=== PATIENT | male | born 1955 | race Caucasian/White ===

== ENCOUNTER 2017-06-10 16:41 | Observation (INO) ==
--- NOTE | 2017-06-10 16:57 | Emergency Department Note ---
Disposition Clinical Impression: Atrial fibrillation Abdominal pain Qualifiers: Abdominal location: generalized Qualified Code(s): R10.84 - Generalized abdominal pain Hematuria Qualifiers: Hematuria type: unspecified type Qualified Code(s): R31.9 - Hematuria, unspecified Disposition: Admitted As Inpatient Condition: Good Referrals: Jiemnez Ramirez MD [Primary Care Provider] - Forms: ED Satisfaction Letter, Work/School Release Time of Disposition: 19:28 Abdominal Pain HPI - General Chief Complaint: ED Abdominal Pain Stated Complaint: constipation Time Seen by Provider: 06/10/17 16:46 Source: patient Mode of arrival: ambulatory Limitations: no limitations Nursing Notes Reviewed: Yes Vital Signs Reviewed: Yes - History of Present Illness HPI Narrative: 62-year-old who states he's not had a bowel movement for 5 days. He states he was started on Xarelto for A. fib did note that was a side effect related. He's got dark urine did note there was blood in it. He's not had a bowel movement so he cannot tell me if he's had blood in his stool. Pt Subjective Complaint: abdominal pain Onset (ago): day(s) Consistency: constant Location: diffuse Pain Scale: 5 Quality: cramping, aching Radiation: none Migration to: no migration Improves with: nothing Worsens with: nothing Associated symptoms: Reports: constipation - Related Data Allergies Allergy/AdvReac Type Severity Reaction Status Date / Time cephalexin Allergy Hives Verified 06/10/17 19:00 Constitutional: Denies: fever, chills, weakness, weight change Eyes: Denies: eye pain, eye discharge, vision change ENT ED: Denies: ear pain, throat pain, dental pain, hearing loss, epistaxis, congestion, dysphagia Cardiovascular: Denies: chest pain, palpitations, dyspnea on exertion, edema, syncope Respiratory: Denies: cough, dyspnea, wheezes, hemoptysis, stridor Gastrointestinal: Reports: abdominal pain, constipation. Denies: nausea, vomiting, diarrhea, hematemesis, melena, hematochezia Genitourinary: Denies: urgency, dysuria, frequency, hematuria Musculoskeletal: Denies: back pain, neck pain, arthralgia, myalgia Integumentary: Denies: rash, abrasion, lesions Neurological: Denies: headache, weakness, numbness, paresthesias, confusion, abnormal gait, vertigo Psychiatric: Denies: anxiety, depression, suicidal thoughts, homicidal thoughts , auditory hallucinations, visual hallucinations Endocrine: Denies: fatigue Hematological/Lymphatic: Denies: easy bleeding, easy bruising Allergic/Immunologic: Denies: facial swelling, urticaria Abdominal Pain PMH - Past Medical History Medical history: Reports: atrial fibrillation, COPD, other Male Surgical History: Reports: other - Social History Smoking status: Current every day smoker Alcohol use: Reports: none Drug use: Reports: none Physical Exam - General Limitations: no limitations General appearance: in no apparent distress - Head Head exam: atraumatic, normocephalic, normal inspection - Eye Eye exam: Present: normal appearance, PERRL, EOMI - ENT ENT exam: normal exam, normal oropharynx, mucous membranes moist - Neck Neck exam: Present: normal inspection, full ROM, trachea midline - Chest Chest inspection: Present: normal inspection, symmetric chest wall rise - Respiratory Respiratory exam: Present: normal lung sounds bilaterally - Cardiovascular Cardiovascular exam: Present: regular rate, normal rhythm, normal heart sounds - Abdominal Exam Abdominal exam: Present: soft, tenderness. Absent: guarding, rebound Abdominal tenderness: Present: diffuse - Rectal Exam Farmer And Grazier present during exam: Yes Rectal exam: Present: other (Brown stool) - Extremities Exam Extremities exam: Present: normal inspection, full ROM. Absent: tenderness, pedal edema - Expanded Lower Extremity Exam Neurovascular/Tendon exam: Absent: motor deficit, sensory deficit, tendon deficit Gait: observed and normal - Back Exam Back exam: Present: normal inspection, full ROM. Absent: tenderness - Neurological Exam Neurological exam: Present: alert, oriented X3 - Psychiatric Psychiatric exam: Present: normal affect, normal mood - Skin Skin exam: Present: warm, dry, intact, normal color Course - Reevaluation(s) Reevaluation #1: 62-year-old who comes in with increasing abdominal pain. Patient has a history of A. fib related to Graves' disease and was placed on Xarelto by cardiology in anticipation of elective cardioversion. At increasing abdominal pain and hematuria. Workup included a CT scan which was negative. He did show evidence of hematuria there were some white cells and some leukocyte esterase. We'll place him on antibiotics and admit him and cardiology will see him in consult. Time: 19:27 - Consultations Consultation #1: Discussed with , we will admit to the hospital stay will see in consult. Time: 19:26 Consultation #2: Discussed with Bell Flores, admit Time: 19:26 Vital Signs Temperature 97.5 F L 06/10/17 16:42 Pulse Rate 84 06/10/17 16:42 Respiratory Rate 18 06/10/17 16:42 Blood Pressure 185/109 06/10/17 16:42 O2 Sat by Pulse Oximetry 99 06/10/17 16:42 Temperature 97.5 F L 06/10/17 16:42 Pulse Rate 80 06/10/17 19:01 Respiratory Rate 17 06/10/17 19:01 Blood Pressure 144/103 06/10/17 19:01 O2 Sat by Pulse Oximetry 95 06/10/17 19:01 Oxygen Delivery Oxygen Delivery Room Air Abdominal Pain - Lab Data Result diagrams: 06/10/17 17:54 06/10/17 17:54 Lab Results 06/10/17 06/10/17 06/10/17 Range/Units 17:54 17:54 17:54 WBC 9.5 (4.3-11.1) K/mcL RBC 4.92 (4.19-5.50) M/mcL Hgb 14.9 (12.9-16.9) g/dL Hct 46.5 (37.5-50.1) % MCV 94.5 (83.0-100.0) fL MCH 30.3 (28.0-33.3) pg MCHC 32.0 (31.6-35.5) g/dL RDW 13.6 (11.5-14.5) % Plt Count 237 (140-400) K/mcL MPV 9.8 (9.4-12.4) fL Immature Gran % 0.3 (0-4) % Seg Neutrophils % 72.5 % Lymphocytes % 17.3 % Monocytes % 5.6 % Eosinophils % 3.9 % Basophils % 0.4 % Neutrophils # 6.9 (1.6-8.9) K/mcL Lymphocytes # 1.6 (0.6-4.6) K/mcL Monocytes # 0.5 (0.0-1.3) K/mcL Eosinophils # 0.4 (0.0-0.6) K/mcL Basophils # 0.0 (0.0-0.2) K/mcL Sodium 143 (136-145) mEq/L Potassium 4.1 (3.5-4.5) mEq/L Chloride 109 (98-109) mEq/L Carbon Dioxide 26 (19-29) mEq/L BUN 13 (8-26) mg/dL Creatinine 1.18 (0.72-1.25) mg/dL Est GFR ( Amer) > 60 (> 60) Est GFR (Non-Af Amer) > 60 (> 60) BUN/Creatinine Ratio 11 (6-26) Glucose 80 (70-99) mg/dL Calculated Osmolality 295 (280-300) Calcium 9.2 (8.6-10.8) mg/dL Total Bilirubin 0.7 (0.2-1.2) mg/dL Direct Bilirubin 0.3 (0.0-0.5) mg/dL Indirect Bilirubin 0.4 (0.0-1.2) mg/dL AST 15 (5-34) Units/L ALT 10 (0-55) Units/L Alkaline Phosphatase 96 (38-126) Units/L Serum Total Protein 7.3 (6.0-8.3) g/dL Albumin 4.0 (3.5-5.0) g/dL Globulin 3.3 (2.4-3.5) g/dL Albumin/Globulin Ratio 1.2 (1.1-2.2) Amylase 34 (25-125) Units/L Lipase 21 (8-78) Units/L TSH 0.733 (0.350-4.840) mcIU/mL Free T4 1.26 (0.70-1.48) ng/dl Thyroxine (T4) 8.58 (4.87-11.72) mcg/dL Urine Color (Yellow) Urine Clarity (Clear) Urine pH (5.0-8.0) pH Units Ur Specific [place] (1.010-1.025) Urine Protein (Neg-Trace) mg/dL Urine Glucose (UA) (Normal) mg/dL Urine Ketones (Negative) mg/dL Urine Blood (Negative) Urine Nitrite (Negative) Urine Bilirubin (Negative) Urine Urobilinogen (Normal) mg/dL Ur Leukocyte Esterase (Negative) Urine Microscopic RBC (0-3) per hpf Urine Microscopic WBC (0-3) per hpf Ur Squamous Epith Cells (None-Few) per lpf Urine Bacteria (None-Few) per hpf Hyaline Casts (None-Few) per lpf Ur Culture Indicated? (NO) Stool Occult Blood (Negative) 06/10/17 06/10/17 Range/Units 18:16 18:16 WBC (4.3-11.1) K/mcL RBC (4.19-5.50) M/mcL Hgb (12.9-16.9) g/dL Hct (37.5-50.1) % MCV (83.0-100.0) fL MCH (28.0-33.3) pg MCHC (31.6-35.5) g/dL RDW (11.5-14.5) % Plt Count (140-400) K/mcL MPV (9.4-12.4) fL Immature Gran % (0-4) % Seg Neutrophils % % Lymphocytes % % Monocytes % % Eosinophils % % Basophils % % Neutrophils # (1.6-8.9) K/mcL Lymphocytes # (0.6-4.6) K/mcL Monocytes # (0.0-1.3) K/mcL Eosinophils # (0.0-0.6) K/mcL Basophils # (0.0-0.2) K/mcL Sodium (136-145) mEq/L Potassium (3.5-4.5) mEq/L Chloride (98-109) mEq/L Carbon Dioxide (19-29) mEq/L BUN (8-26) mg/dL Creatinine (0.72-1.25) mg/dL Est GFR ( Amer) (> 60) Est GFR (Non-Af Amer) (> 60) BUN/Creatinine Ratio (6-26) Glucose (70-99) mg/dL Calculated Osmolality (280-300) Calcium (8.6-10.8) mg/dL Total Bilirubin (0.2-1.2) mg/dL Direct Bilirubin (0.0-0.5) mg/dL Indirect Bilirubin (0.0-1.2) mg/dL AST (5-34) Units/L ALT (0-55) Units/L Alkaline Phosphatase (38-126) Units/L Serum Total Protein (6.0-8.3) g/dL Albumin (3.5-5.0) g/dL Globulin (2.4-3.5) g/dL Albumin/Globulin Ratio (1.1-2.2) Amylase (25-125) Units/L Lipase (8-78) Units/L TSH (0.350-4.840) mcIU/mL Free T4 (0.70-1.48) ng/dl Thyroxine (T4) (4.87-11.72) mcg/dL Urine Color Red A (Yellow) Urine Clarity Cloudy A (Clear) Urine pH 6.5 (5.0-8.0) pH Units Ur Specific [place] 1.019 (1.010-1.025) Urine Protein 30 H (Neg-Trace) mg/dL Urine Glucose (UA) Normal (Normal) mg/dL Urine Ketones Trace H (Negative) mg/dL Urine Blood Large H (Negative) Urine Nitrite Negative (Negative) Urine Bilirubin Negative (Negative) Urine Urobilinogen Normal (Normal) mg/dL Ur Leukocyte Esterase Small H (Negative) Urine Microscopic RBC TNTC H (0-3) per hpf Urine Microscopic WBC 5-15 H (0-3) per hpf Ur Squamous Epith Cells Moderate H (None-Few) per lpf Urine Bacteria None Seen (None-Few) per hpf Hyaline Casts None Seen (None-Few) per lpf Ur Culture Indicated? YES A (NO) Stool Occult Blood Negative (Negative)
[2017-06-10 18:01] LABS: Basophils % 0.4 %; Eosinophils # 0.4 K/mcL (0.0-0.6); Eosinophils % 3.9 %; Hematocrit 46.5 % (37.5-50.1); Hemoglobin 14.9 g/dL (12.9-16.9); Immature Granulocytes % 0.3 % (0-4); Lymphocytes # 1.6 K/mcL (0.6-4.6); Lymphocytes % 17.3 %; Mean Corpuscular Hemoglobin 30.3 pg (28.0-33.3); Mean Corpuscular Volume 94.5 fL (83.0-100.0); Mean Platelet Volume 9.8 fL (9.4-12.4); Monocytes # 0.5 K/mcL (0.0-1.3); Monocytes % 5.6 %; Neutrophils # 6.9 K/mcL (1.6-8.9); Platelet Count 237 K/mcL (140-400); Red Blood Count 4.92 M/mcL (4.19-5.50); Red Cell Distribution Width 13.6 % (11.5-14.5); Segmented Neutrophils % 72.5 %
[2017-06-10 18:16] LABS: Alanine Aminotransferase 10 Units/L (0-55); Albumin/Globulin Ratio 1.2 (1.1-2.2); Alkaline Phosphatase 96 Units/L (38-126); Amylase 34 Units/L (25-125); Aspartate Amino Transferase 15 Units/L (5-34); BUN/Creatinine Ratio 11 (6-26); Bilirubin,Direct 0.3 mg/dL (0.0-0.5); Bilirubin,Indirect 0.4 mg/dL (0.0-1.2); Bilirubin,Total 0.7 mg/dL (0.2-1.2); Blood Urea Nitrogen 13 mg/dL (8-26); Calcium 9.2 mg/dL (8.6-10.8); Carbon Dioxide 26 mEq/L (19-29); Chloride 109 mEq/L (98-109); Globulin 3.3 g/dL (2.4-3.5); Glucose 80 mg/dL (70-99); Lipase 21 Units/L (8-78); Osmolality,Calculated 295 (280-300); Potassium 4.1 mEq/L (3.5-4.5); Sodium 143 mEq/L (136-145); Total Protein 7.3 g/dL (6.0-8.3); eGFR For African Americans > 60 (> 60); eGFR For Non-African Americans > 60 (> 60)
[2017-06-10 18:36] LABS: Thyroid Stimulating Hormone 0.733 mcIU/mL (0.350-4.840)
[2017-06-10 18:37] LABS: Bilirubin,Urine Negative (Negative); Blood,Urine Large (Negative); Clarity,Urine Cloudy (Clear); Color,Urine Red (Yellow); Glucose,Urine (UA) Normal (Normal); Ketones,Urine Trace mg/dL (Negative); Leukocyte Esterase,Urine Small (Negative); Nitrite,Urine Negative (Negative); PH,Urine 6.5 pH Units (5.0-8.0); Protein,Urine 30 mg/dL (Neg-Trace); Specific Gravity,Urine 1.019 (1.010-1.025); Urobilinogen,Urine Normal (Normal)
[2017-06-10 18:39] LABS: Bacteria,Urine None Seen per hpf (None-Few); Hyaline Casts,Urine None Seen per lpf (None-Few); RBC,Urine TNTC per hpf (0-3); Squamous Epithelial Cell,Urine Moderate per lpf (None-Few)
[2017-06-10] MEDS ORDERED: Simethicone 80 MG TAB.CHEW PO STA (18:50)
[2017-06-10] MEDS ORDERED: Levofloxacin 500 MG/100 ML 500 MG/100 ML BAG IVPB ONE (19:30)
[2017-06-10] MEDS ORDERED: *HR* HYDROmorphone (PF) 1 MG/ML SYRINGE IVP ONE (20:30)
[2017-06-10] MEDS ORDERED: Ondansetron 4 MG/2 ML VIAL IVP PRN (21:19)
[2017-06-10] MEDS ORDERED: Naloxone 0.4 MG/ML INJ IVP PRN (21:19)
[2017-06-10] MEDS ORDERED: *HR* Morphine 2 MG/ML SYRINGE IVP PRN (21:19)
[2017-06-10] MEDS ORDERED: Sennosides/Docusate Sodium TABLET PO PRN (21:26)
--- NOTE | 2017-06-10 22:17 | Internal Med History&Physical ---
Date of Encounter: 06/10/17 Time of Encounter: 09:50 Assessment and Plan (1) Constipation Current visit: Yes Status: Acute CT abd reported Diverticulosis without any acute inflammation or infection continue laxative support (Senna plus 2tabs PO BID and miralax prn constipation) Qualifiers: Constipation type: unspecified constipation type Qualified Code(s): K59.00 - Constipation, unspecified (2) UTI (urinary tract infection) Current visit: Yes Status: Acute f/u urine culture continue IV abx Qualifiers: Urinary tract infection type: site unspecified Hematuria presence: with hematuria Qualified Code(s): N39.0 - Urinary tract infection, site not specified; R31.9 - Hematuria, unspecified (3) Atrial fibrillation Current visit: Yes Status: Chronic Given patient's clinical presentation, hematuria likely secondary to UTI. H&H stable will continue Xarelto at this time Rate controlled with Xarelto continue tele monitoring ER physician called the finance broker for continuation of watermelon inspector anticoagulation Qualifiers: Atrial fibrillation type: chronic Qualified Code(s): I48.2 - Chronic atrial fibrillation (4) COPD (chronic obstructive pulmonary disease) Current visit: Yes Status: Chronic not in acute exacerbation continue home meds Qualifiers: COPD type: unspecified COPD Qualified Code(s): J44.9 - Chronic obstructive pulmonary disease, unspecified (5) Thyroid disease Current visit: Yes Status: Acute continue home dose of Levothyroxine. (6) DVT prophylaxis Current visit: Yes Status: Acute on xarelto Internal Medicine - H&P: HPI Chief complaint: abd pain Admitted From: Home Plans for Post Hospital Care: Home History of present illness: Mr. Mendoza is a 62 year old male with PMH of COPD, thyroid disease (grave's disease s/p ablation, now hypothyroidism), Atrial fibrillation on Xarelto, right eye blindness, chronic back pain who presents to the ER for evaluation of abd pain x 5days. Patient states he was recently started on Xarelto and has been brown colored urine along with worsening abd pain. States he has not been able to have a bowel movement for the last 5 days which is what prompted his visit to the ER. His UA is concerning for UTI. He received IV dialudid prior to my evaluation therefore his pain was controlled when I examined the patient. Reports of passing gas and denies any chest pain, sob, n/v, fever, or chills. Code status: Full code Social hx: Former smoker Past Med Surg Social Fam HX - Past Medical History Medical history: atrial fibrillation, COPD, other Psychiatric history: no psych history - Social History Smoking Status: Former smoker Alcohol use: none Drug use: none - Family History Mother Living Status: Still Living Hx Family Cardiac Disorders: Yes (anemic, gullian barre) Hx Family Genitourinary Disorders: Yes (stage 3 kidney disease) Father Living Status: Age at : 91 Cause of : heart Hx Family Cardiac Disorders: Yes (afib,) Hx Family Genitourinary Disorders: Yes (stage 3 kidney disease) Internal Medicine - H&P: Meds Advair Hfa 230-21 Mcg Inhaler 2 mcg IH BID 06/10/17 [History] Atenolol [Tenormin] 75 mg DAILY 06/10/17 [History] Combigan 0.2%-0.5% Eye Drops 1 drop BOTH EYES DAILY 06/10/17 [History] Folic Acid 1 mg PO DAILY 06/10/17 [History] Latanoprost 1 drop BOTH EYES DAILY 06/10/17 [History] Levothyroxine [Synthroid] 125 mcg PO DAILY 06/10/17 [History] Methotrexate [Otrexup] 2.5 mg PO QWEEK 06/10/17 [History] Proair Hfa 90 mcg IN PRN PRN 06/10/17 [History] Rivaroxaban [Xarelto] 20 mg PO DAILY 06/10/17 [History] 3 Allergy/AdvReac Type Severity Reaction Status Date / Time cephalexin Allergy Hives Verified 06/10/17 19:00 All Systems PM: A 10-system review of systems was performed and is negative for pertinent findings except as documented above in the HPI. - Constitutional Constitutional: as per HPI - Constitutional Vitals: Temp Pulse Resp BP Pulse Ox 97.5 F L 80 16 140/98 95 06/10/17 16:42 06/10/17 19:01 06/10/17 20:49 06/10/17 20:49 06/10/17 19:01 General appearance: Present: A&O X 3, no acute distress, answers questions appropriately - Head Head exam: Present: atraumatic, normocephalic - Respiratory Respiratory exam: Present: CTAB. Absent: respiratory distress, wheezes - Cardiovascular Cardiovascular exam: Present: irregular rhythm, +S1, +S2. Absent: diastolic murmur, gallop, rubs, systolic murmur - GI/Abdominal GI/Abdominal exam: Present: distended (obese), normal bowel sounds, soft, no peritoneal signs. Absent: firm, guarding, tenderness - Extremities Exam Extremities exam: Present: warm, radial pulses palpable and symmetrical. Absent : calf tenderness, cyanotic, pedal edema - Neurological Exam Neurological exam: Present: alert, oriented X3 - Psychiatric Psychiatric exam: Present: normal affect, normal mood Internal Med - H&P Results - Labs CBC & Chem 7: 06/10/17 17:54 06/10/17 17:54
[2017-06-10] MEDS: Sennosides/Docusate Sodium TABLET PO SCH (22:58)
[2017-06-11 05:19] LABS: Basophils % 0.5 %; Eosinophils # 0.3 K/mcL (0.0-0.6); Eosinophils % 3.8 %; Hematocrit 44.1 % (37.5-50.1); Immature Granulocytes % 0.6 % (0-4); Lymphocytes # 1.8 K/mcL (0.6-4.6); Lymphocytes % 21.7 %; Mean Corpuscular HGB Conc 31.7 g/dL (31.6-35.5); Mean Corpuscular Hemoglobin 30.2 pg (28.0-33.3); Mean Platelet Volume 10.3 fL (9.4-12.4); Monocytes # 0.6 K/mcL (0.0-1.3); Monocytes % 7.8 %; Neutrophils # 5.4 K/mcL (1.6-8.9); Platelet Count 216 K/mcL (140-400); Red Blood Count 4.64 M/mcL (4.19-5.50); Red Cell Distribution Width 13.7 % (11.5-14.5); Segmented Neutrophils % 65.6 %
[2017-06-11 05:38] LABS: BUN/Creatinine Ratio 13 (6-26); Blood Urea Nitrogen 14 mg/dL (8-26); Calcium 9.1 mg/dL (8.6-10.8); Carbon Dioxide 26 mEq/L (19-29); Chloride 107 mEq/L (98-109); Glucose 104 mg/dL (70-99); Magnesium 2.1 mg/dL (1.6-2.6); Osmolality,Calculated 293 (280-300); Phosphorous 3.4 mg/dL (2.3-4.7); Potassium 3.9 mEq/L (3.5-4.5); Sodium 141 mEq/L (136-145); eGFR For African Americans > 60 (> 60); eGFR For Non-African Americans > 60 (> 60)
[2017-06-11] MEDS: *HR* HYDROmorphone (PF) 1 MG/ML SYRINGE IVP PRN ×4 (06:17→23:37)
[2017-06-11] MEDS: Budesonide/Formoterol 80/4.5 MDI IH SCH ×2 (08:34→22:19)
[2017-06-11] MEDS: Sennosides/Docusate Sodium TABLET PO SCH ×2 (08:44→21:27)
[2017-06-11] MEDS: *HR* Rivaroxaban 10 MG TABLET PO SCH (08:44)
[2017-06-11] MEDS: Folic Acid 1 MG TABLET PO SCH (08:45)
[2017-06-11] MEDS ORDERED: Bisacodyl 10 MG RECTAL SUPPOSITORY RC ONE ×2 (12:23→18:52)
--- NOTE | 2017-06-11 13:38 | Cardiology Consult Note ---
<Andrew Loyola - Last Filed: 06/11/17 14:42> Date of Encounter: 06/11/17 Time of Encounter: 13:35 Assessment and Plan (1) Hematuria Current Visit: Yes Status: Acute Hematuria in the setting of UTI. C/o tea colored urine. Reports urine is not as dark after starting antibiotics. Hgb stble. Continue anticoagulation as tolerated. If hematuria continues despite treatment of UTI we will stop xarelto. Urine culture is pending. Qualifiers: Hematuria type: unspecified type Qualified Code(s): R31.9 - Hematuria, unspecified (2) Atrial fibrillation Current Visit: Yes Status: Acute H/o PAF. Previously on coumadin. Stopped in the past when he was seen to not have afib. Recently started on Xarelto (05/25/17) due to CHADS VASC2 and being found to have recurrent afib. C/o constipation and abdominal pain for one week. Inquiring if from xarelto. Patient found to have UTI. We discussed switching to coumadin or pradaxa. Declines eliquis. He is considering. If symptoms improve with UTI treatment he will consider continuing xarelto. Rate controlled. Avg hr was 74. Continue atenolol. Stress test as out pt as scheduled. Qualifiers: Atrial fibrillation type: paroxysmal Qualified Code(s): I48.0 - Paroxysmal atrial fibrillation Discussion w patient/family: The assessment and plan as outlined above was discussed with the patient and/or family members who expressed understanding and agreement. All questions were answered. Thank you for involving us in the care of your patient. Please call with any questions. History of Present Illness Consult date: 06/11/17 Requesting physician: Dean Michelle Consult reason: hematuria on xarelto Chief complaint: constipation History of present illness: Mr. Mendoza is a 62 year old male with a history atrial fibrillation recently started on xarelto, graves disease, and HTN who presents with the c/o constipation, lower abd pain, and flank pain. He is currently being treated for UTI and constipation. Cardiology is consulted for AC recommendations in the setting of hematuria. He c/o dark urine and was found to have large amount of blood in his urine. He was started on xarelto 05/25/17 for atrial fibrillation. He feels like the xarelto is making him constipated. He is inquiring to change to alternative medication. As of note he was recently seen in the cardiology office. Stress test ordered for afib. He is scheduled for a stress test this sunday. He was found to have recurrent asymptomatic afib. He reports that a cardioversion was discussed. Past Med Surg Social Fam HX - Past Medical History Medical history: atrial fibrillation, COPD, coronary artery disease, hypertension, other Psychiatric history: no psych history - Social History Smoking Status: Former smoker Alcohol use: none Drug use: none - Family History Mother Living Status: Still Living Hx Family Cardiac Disorders: Yes (anemic, gullian barre) Hx Family Genitourinary Disorders: Yes (stage 3 kidney disease) Father Living Status: Age at : 91 Cause of : heart Hx Family Cardiac Disorders: Yes (afib,) Hx Family Genitourinary Disorders: Yes (stage 3 kidney disease) Medications and Allergies Advair Hfa 230-21 Mcg Inhaler 2 mcg IH BID 06/10/17 [History] Atenolol [Tenormin] 75 mg DAILY 06/10/17 [History] Combigan 0.2%-0.5% Eye Drops 1 drop BOTH EYES DAILY 06/10/17 [History] Folic Acid 1 mg PO DAILY 06/10/17 [History] Latanoprost 1 drop BOTH EYES DAILY 06/10/17 [History] Levothyroxine [Synthroid] 125 mcg PO DAILY 06/10/17 [History] Methotrexate [Otrexup] 2.5 mg PO QWEEK 06/10/17 [History] Proair Hfa 90 mcg IN PRN PRN 06/10/17 [History] Rivaroxaban [Xarelto] 20 mg PO DAILY 06/10/17 [History] 3 Allergy/AdvReac Type Severity Reaction Status Date / Time cephalexin Allergy Hives Verified 06/10/17 19:00 All Systems Review: A 10-system review of systems was performed and is negative for pertinent findings except as documented above in the HPI. Physical Examination Vital Signs, Last 4 Hours Temp Pulse Resp BP Pulse Ox 06/11/17 10:52 97.5 F L 68 16 141/92 97 General: Conversant, No Apparent Distress HEENT: Atraumatic, Normocephaly, Mucus Membranes Moist Neck: No JVD, Normal carotid pulses Cardiac: No Murmur, Other (irregular) Lungs: Normal Breath Sounds, No Wheeze, Rales, Rhonchi Neuro: Alert and responsive, No focal deficits noted Abdomen: Soft, Non-Tender Skin: No rashes noted on visualized skin Musculoskeletal: No Chest Wall Tenderness Extremities: No Clubbing, No Cyanosis, No Edema, Normal Pulses Results 06/11/17 04:46 06/11/17 04:46 Lab Results 06/11/17 06/11/17 04:46 04:46 WBC 8.2 Hgb 14.0 Hct 44.1 Plt Count 216 Sodium 141 Potassium 3.9 Chloride 107 Carbon Dioxide 26 BUN 14 Creatinine 1.05 Glucose 104 H Calcium 9.1 Magnesium 2.1 Consult Discharge Plan - Plan Referrals: Jimenez Ramirez MD [Primary Care Provider] - <Lavelle Kathleen - Last Filed: 06/11/17 18:59> Date of Encounter: 06/11/17 Assessment and Plan Discussion w patient/family: The assessment and plan as outlined above was discussed with the patient and/or family members who expressed understanding and agreement. All questions were answered. Thank you for involving us in the care of your patient. Please call with any questions. History of Present Illness History of present illness: Mr. Mendoza is a 62 year old male All Systems Review: A 10-system review of systems was performed and is negative for pertinent findings except as documented above in the HPI. Physical Examination Vital Signs, Last 4 Hours Temp Pulse Resp BP Pulse Ox 06/11/17 17:00 97.5 F L 57 15 147/91 96 Results 06/11/17 04:46 06/11/17 04:46 Lab Results 06/11/17 06/11/17 04:46 04:46 WBC 8.2 Hgb 14.0 Hct 44.1 Plt Count 216 Sodium 141 Potassium 3.9 Chloride 107 Carbon Dioxide 26 BUN 14 Creatinine 1.05 Glucose 104 H Calcium 9.1 Magnesium 2.1 - Attending Attestation Pt seen and examined independently, chart reviewed, essentially agree with above , my evaluation as follows: CC: Abdominal pain HPI: Pt complains of five days of abdominal pain, bloating and constipation. He also complains of urinary urgency and frequency, with blood colored foul smelling urine. Pt was evaluated in ER, found to have a UTI, and admitted for IV antibiotic tx. Pt has long history of A fib with controlled ventricular response, and with a CHADS VASC score of 3 recently placed on Xaralto for primary stroke risk reduction. He had been on warfarin "many years ago", which had been stopped for unclear indications. He is very concerned constipation was caused by Xaralto. He continues to experience abdominal pain, and has not yet had a successful bowel movement. He is asymptomatic from A fib perspective , does not note heart racing or skipping, denies palpitations and shortness of breath. PE: agree with above, additionally has right eye patch, moderate abdominal distention, mild bilat lower quadrant tenderness, no rebound Imp/Plan 1. A fib with controlled ventricular response, back on Xaralto with urine clearing, will continue if urine continues to clear, if not will need to hold anticoagulation x 72 hours. 2. Systemic anticoagulation - resumed Xaraltol, will follow clinically 3. Hematuria, most likely due to UTI and anticoagulation, continue to monitorl 4. Constipation: due to UTI, diverticulits, continue to monitor, pt assumed constipation due to Xaralto, will monitor, constipation NOT a reported side effect of Xaralto.
--- NOTE | 2017-06-11 17:36 | Internal Med Progress Note ---
Date of Encounter: 06/11/17 Time of Encounter: 17:33 - Assessment and plan (1) Constipation Current Visit: Yes Status: Acute Assessment and plan: Continue laxatives. If these do not work, plan for enema Qualifiers: Constipation type: slow transit constipation Qualified Code(s): K59.01 - Slow transit constipation (2) Atrial fibrillation Current Visit: Yes Status: Chronic Assessment and plan: Rate controlled. On anticoagulation with Xarelto. Cardiology has been consulted and their input appreciated. We will continue Xarelto for now Qualifiers: Atrial fibrillation type: chronic Qualified Code(s): I48.2 - Chronic atrial fibrillation (3) COPD (chronic obstructive pulmonary disease) Current Visit: Yes Status: Chronic Assessment and plan: Chronic. Not in acute exacerbation Qualifiers: COPD type: unspecified COPD Qualified Code(s): J44.9 - Chronic obstructive pulmonary disease, unspecified (4) Hematuria Current Visit: Yes Status: Acute Assessment and plan: Blood counts remain stable. Could be related to possible urinary tract infection Qualifiers: Hematuria type: unspecified type Qualified Code(s): R31.9 - Hematuria, unspecified (5) UTI (urinary tract infection) Current Visit: Yes Status: Acute Assessment and plan: With some costovertebral tenderness. Continue IV antibiotics. Follow culture results. Qualifiers: Urinary tract infection type: site unspecified Hematuria presence: with hematuria Qualified Code(s): N39.0 - Urinary tract infection, site not specified; R31.9 - Hematuria, unspecified (6) Essential hypertension Current Visit: Yes Status: Chronic Assessment and plan: continue atenolol. Blood pressure intermittently elevated. Monitor for now. Adjust antihypertensive regimen if this continues to be elevated - Subjective Interval history: Saw patient earlier today. He had not yet had a bowel movement then. He received a Dulcolax suppository after which he had a small bowel movement. He still complains of right-sided flank pain. - Constitutional Vitals: Temp Pulse Resp BP Pulse Ox 97.5 F L 57 15 147/91 96 06/11/17 17:00 06/11/17 17:00 06/11/17 17:00 06/11/17 17:00 06/11/17 17:00 General appearance: Present: A&O X 3, no acute distress, answers questions appropriately - Respiratory Respiratory exam: Present: CTAB. Absent: accessory muscle use, rales, rhonchi, wheezes - Cardiovascular Cardiovascular exam: Present: RRR, +S1, +S2. Absent: diastolic murmur, gallop, rubs, systolic murmur - GI/Abdominal GI/Abdominal exam: Present: normal bowel sounds, soft, no peritoneal signs. Absent: distended, tenderness - Extremities Exam Extremities exam: Present: warm, radial pulses palpable and symmetrical. Absent : calf tenderness, cyanotic, pedal edema - Back Exam Back exam: Present: CVA tenderness (R) Internal Medicine: Result - Labs CBC & Chem 7: 06/11/17 04:46 06/11/17 04:46 Labs: Short CBC 06/11/17 Range/Units 04:46 WBC 8.2 (4.3-11.1) K/mcL Hgb 14.0 (12.9-16.9) g/dL Hct 44.1 (37.5-50.1) % Plt Count 216 (140-400) K/mcL Neutrophils # 5.4 (1.6-8.9) K/mcL BMP 06/11/17 04:46 Sodium 141 Potassium 3.9 Chloride 107 Carbon Dioxide 26 BUN 14 Creatinine 1.05 Glucose 104 H Calcium 9.1 Consult Discharge Plan - Plan Referrals: Jimenez Ramirez MD [Primary Care Provider] -
[2017-06-11] MEDS ORDERED: Levofloxacin 750 MG/150 ML 750 MG/150 ML BAG IVPB SCH (21:00)
[2017-06-11] MEDS: Latanoprost 2.5 ML BOTTLE BOTH EYES SCH (21:32)
[2017-06-12] MEDS: *HR* HYDROmorphone (PF) 1 MG/ML SYRINGE IVP PRN (03:57)
[2017-06-12] MEDS: Budesonide/Formoterol 80/4.5 MDI IH SCH ×2 (08:03→20:39)
[2017-06-12] MEDS: *HR* Rivaroxaban 10 MG TABLET PO SCH (08:49)
[2017-06-12] MEDS: Sennosides/Docusate Sodium TABLET PO SCH ×2 (08:49→21:09)
[2017-06-12] MEDS ORDERED: *HR* Methotrexate 2.5 MG TABLET PO SCH ×2 (09:00→13:05)
[2017-06-12] MEDS ORDERED: Lactulose Oral Soln 20 GM/30 ML UDC PO ONE (12:31)
--- NOTE | 2017-06-12 12:58 | Cardiology Progress Note ---
Date of Encounter: 06/12/17 Time of Encounter: 14:35 Assessment and Plan (1) Hematuria Current Visit: Yes Status: Acute Hematuria possibly in the setting of UTI per hospitalist. C/o tea colored urine on admission. Large amt blood on UA. Hgb remained stable. Reports urine is now clear yellow after starting antibiotics. Continues on xarelto. Hgb stble. Continue anticoagulation as tolerated. If hematuria returns consider urology consult for cystoscopy. Patient agrees to continue xarelto and continue to monitor. Cardiology will sign off. Call with questions. Qualifiers: Hematuria type: unspecified type Qualified Code(s): R31.9 - Hematuria, unspecified (2) Atrial fibrillation Current Visit: Yes Status: Acute H/o PAF. Previously on coumadin. Stopped in the past when he was seen to not have afib. Recently started on Xarelto (05/25/17) due to CHADS VASC2 and being found to have recurrent afib. C/o constipation and abdominal pain for one week. Inquiring if from xarelto. This is not a dcumented side effect. Patient found to have UTI. Symptoms improved. We will continue xarelto. He has out-pt f/u schedule with Dr. Griffin Otoole. Qualifiers: Atrial fibrillation type: paroxysmal Qualified Code(s): I48.0 - Paroxysmal atrial fibrillation Discussion w patient/family: The assessment and plan as outlined above was discussed with the patient and/or family members who expressed understanding and agreement. All questions were answered. Thank you for involving us in the care of your patient. Please call with any questions. Subjective Principal diagnosis: hematuria, UTI Interval history: Reports urine is now straw colored. Abdominal bloating improved. Continues to have constipation. Objective Vital Signs, Last 4 Hours Temp Pulse Resp BP Pulse Ox 06/12/17 12:08 98.0 F 63 18 131/83 96 General: Conversant, No Apparent Distress HEENT: Atraumatic, Normocephaly, Mucus Membranes Moist Neck: No JVD, Normal carotid pulses Cardiac: Other (Irregularly irregular) Lungs: Normal Breath Sounds, No Wheeze, Rales, Rhonchi Neuro: Alert and responsive, No focal deficits noted Abdomen: Soft, Non-Tender Skin: No rashes noted on visualized skin Musculoskeletal: No Chest Wall Tenderness Extremities: No Clubbing, No Cyanosis, No Edema, Normal Pulses Results 06/11/17 04:46 06/11/17 04:46 - EKG Interpretation EKG results cardiology: personally reviewed Consult Discharge Plan - Plan Referrals: Jimenez Ramirez MD [Primary Care Provider] -
[2017-06-12] MEDS: Folic Acid 1 MG TABLET PO SCH (14:18)
--- NOTE | 2017-06-12 16:01 | Internal Med Progress Note ---
Date of Encounter: 06/12/17 Time of Encounter: 15:55 - Assessment and plan (1) Constipation Current Visit: Yes Status: Acute Assessment and plan: Presented to ER with abdominal pain; secondary to constipation. 06/12/17 KUB with mild to moderate stool burden in large bowel. Had small BM on 06/12/2017. Cont current laxatives, add lactulose. Qualifiers: Constipation type: slow transit constipation Qualified Code(s): K59.01 - Slow transit constipation (2) Atrial fibrillation Current Visit: Yes Status: Acute Assessment and plan: H/o PAF. Previously on coumadin. Stopped in the past when he was seen to not have afib. Recently started on Xarelto (05/25/17) due to CHADS VASC2 and being found to have recurrent afib. With gross hematuria on arrival which has since resolved. Cont Xarelto. Monitor Qualifiers: Atrial fibrillation type: paroxysmal Qualified Code(s): I48.0 - Paroxysmal atrial fibrillation (3) Hematuria Current Visit: Yes Status: Acute Assessment and plan: presented with gross hematuria; now resolved. Etiology unknown but occurred in the setting of Xarelto. Consider cystoscopy if hematuria recurs Qualifiers: Hematuria type: unspecified type Qualified Code(s): R31.9 - Hematuria, unspecified (4) COPD (chronic obstructive pulmonary disease) Current Visit: Yes Status: Chronic Assessment and plan: Per history. No evidence of exacerbation. Qualifiers: COPD type: unspecified COPD Qualified Code(s): J44.9 - Chronic obstructive pulmonary disease, unspecified (5) Essential hypertension Current Visit: Yes Status: Chronic Assessment and plan: per hx. BP controlled. Cont home BP medications. Monitor BP and titrate PRN (6) DVT prophylaxis Current Visit: Yes Status: Acute Assessment and plan: Xarelto - Subjective Interval history: Seen and examined at bedside, says he feels better but only had small BM earlier today. No abdominal pain, no further hematuria. No chest pain, no shortness of breath. - Constitutional Vitals: Temp Pulse Resp BP Pulse Ox 98.0 F 75 18 131/88 95 06/12/17 15:12 06/12/17 15:12 06/12/17 15:12 06/12/17 15:12 06/12/17 15:12 General appearance: Present: A&O X 3, no acute distress, answers questions appropriately - Head Head exam: Present: atraumatic, normocephalic - Eye Eye exam: Present: PERRL, conjuntiva pink, sclera anicteric Pupils: Present: PERRL - Neck Neck exam general surgery: Present: supple, trachea midline. Absent: lymphadenopathy - Respiratory Respiratory exam: Present: CTAB. Absent: accessory muscle use, rales, rhonchi, wheezes - Cardiovascular Cardiovascular exam: Present: RRR, +S1, +S2. Absent: diastolic murmur, gallop, rubs, systolic murmur - GI/Abdominal GI/Abdominal exam: Present: normal bowel sounds, soft, no peritoneal signs. Absent: distended, tenderness - Extremities Exam Extremities exam: Present: warm, radial pulses palpable and symmetrical. Absent : calf tenderness, cyanotic, pedal edema - Neurological Exam Neurological exam: Present: CN II-XII intact, oriented X3, no focal deficits. Absent: pronater drift, facial droop, speech deficit - Skin Skin exam: Present: dry, intact Internal Medicine: Result - Labs CBC & Chem 7: 06/11/17 04:46 06/11/17 04:46 - Impressions Impressions KUB X-Ray 06/12/17 12:31 IMPRESSION: Normal bowel gas pattern without findings for obstruction. Mild to moderate stool burden in large bowel predominantly in ascending and transverse colon. D/ / 06/12/2017 13:12:07 Tristin Gamble MD / garcía Interpreting Provider: Tristin Gamble MD Consult Discharge Plan - Plan Referrals: Jimenez Ramirez MD [Primary Care Provider] -
--- NOTE | 2017-06-12 19:05 | Electrocardiograph Report ---
[address] [place] [address] Test Date: 2017-06-11 Pat Name: Mika Mendoza Department: 114 Room: 3A55 Gender: Mobile Manager: : 1955 Requested By: Alexandru Ortega Order Number: [id number] Reading MD: Barbara Otoole Measurements Intervals [place] Rate: 56 P: [place]: 0 QRS: 49 QRSD: 102 T: -2 QT: 417 QTc: 407 Interpretive Statements ATRIAL FIBRILLATION WITH SLOW VENTRICULAR RESPONSE WITH ABERRANT CONDUCTION OR VENTRICULAR PREMATURE COMPLEXES POSSIBLE INFERIOR MYOCARDIAL INFARCTION, PROBABLY OLD ABNORMAL RHYTHM ECG Electronically Signed On 06-12-2017 19:03:31 EDT by Barbara Otoole
[2017-06-12] MEDS: Latanoprost 2.5 ML BOTTLE BOTH EYES SCH (21:13)
[2017-06-13 05:56] LABS: Hematocrit 44.6 % (37.5-50.1); Hemoglobin 14.3 g/dL (12.9-16.9); Mean Corpuscular HGB Conc 32.1 g/dL (31.6-35.5); Mean Corpuscular Hemoglobin 30.2 pg (28.0-33.3); Mean Corpuscular Volume 94.1 fL (83.0-100.0); Mean Platelet Volume 10.6 fL (9.4-12.4); Platelet Count 233 K/mcL (140-400); Red Blood Count 4.74 M/mcL (4.19-5.50); Red Cell Distribution Width 13.5 % (11.5-14.5)
[2017-06-13 06:15] LABS: Alanine Aminotransferase 9 Units/L (0-55); Albumin 3.8 g/dL (3.5-5.0); Albumin/Globulin Ratio 1.2 (1.1-2.2); Alkaline Phosphatase 90 Units/L (38-126); Aspartate Amino Transferase 16 Units/L (5-34); BUN/Creatinine Ratio 15 (6-26); Blood Urea Nitrogen 18 mg/dL (8-26); Calcium 9.3 mg/dL (8.6-10.8); Carbon Dioxide 26 mEq/L (19-29); Chloride 106 mEq/L (98-109); Globulin 3.1 g/dL (2.4-3.5); Glucose 91 mg/dL (70-99); Osmolality,Calculated 293 (280-300); Potassium 3.9 mEq/L (3.5-4.5); Sodium 141 mEq/L (136-145); Total Protein 6.9 g/dL (6.0-8.3); eGFR For African Americans > 60 (> 60); eGFR For Non-African Americans > 60 (> 60)
[2017-06-13 06:42] LABS: Bilirubin,Total 0.8 mg/dL (0.2-1.2)
[2017-06-13] MEDS: Budesonide/Formoterol 80/4.5 MDI IH SCH (07:51)
[2017-06-13] MEDS: Sennosides/Docusate Sodium TABLET PO SCH (09:04)
[2017-06-13] MEDS: Folic Acid 1 MG TABLET PO SCH (09:05)
[2017-06-13] MEDS: *HR* Rivaroxaban 10 MG TABLET PO SCH (09:05)
[2017-06-13 10:35] VITALS: BP 127/85
--- NOTE | 2017-06-13 14:10 | Discharge Summary ---
Date of Encounter: 06/13/17 Time of Encounter: 14:06 - Discharge Diagnosis (1) Constipation Priority: Primary Status: Acute Comments: Mr. Mendoza is a 62 year old male with PMH of COPD, thyroid disease (grave's disease s/p ablation, now hypothyroidism), Atrial fibrillation on Xarelto, right eye blindness and chronic back pain who presented to [facility] on 06/10/2017 with complaints of abdominal pain and bright red urine. He was placed in observation status for further workup and treatment. He was abdominal pain was secondary to severe constipation which resolved with aggressive bowel regimen. His hematuria resolved on its own without intervention. He was discharged home in stable condition. Constipation: with abdominal pain for 5 days prior to presentation. AVD CT with diverticulosis without evidence of diverticulitis. KUB showed large stool burden. Abdominal pain improved with having 2 large bowel movements. Discharge home with senna, docusate sodium and MiraLAX. Can follow up with PCP. Qualifiers: Constipation type: slow transit constipation Qualified Code(s): K59.01 - Slow transit constipation (2) Atrial fibrillation Priority: Primary Status: Acute Comments: H/o PAF. Previously on coumadin. Stopped in the past when he was found to not have afib. Recently started on Xarelto (05/25/17) due to CHADS VASC2 and recurrent afib. With gross hematuria on arrival, initially thought to be secondary to UTI however urine culture negative. Hematuria resolved without intervention. Evaluated by Cardiology who recommended continuing Xarelto. Continue home BB Will need cystoscopy if hematuria recurs. Has follow-up with Cardiology 06/15/2017 Qualifiers: Atrial fibrillation type: paroxysmal Qualified Code(s): I48.0 - Paroxysmal atrial fibrillation (3) Hematuria Priority: Primary Status: Acute Comments: on presentation, now resolved. Will need cystoscopy if hematuria recurs. Qualifiers: Hematuria type: unspecified type Qualified Code(s): R31.9 - Hematuria, unspecified (4) COPD (chronic obstructive pulmonary disease) Priority: Primary Status: Chronic Comments: Per history. No evidence of exacerbation. Qualifiers: COPD type: unspecified COPD Qualified Code(s): J44.9 - Chronic obstructive pulmonary disease, unspecified (5) Essential hypertension Priority: Primary Status: Chronic Comments: per hx. BP controlled. Cont home BP medications. - Discharge Medications Prescriptions: Polyethylene Glycol 3350 [MiraLAX] 17 gm PO DAILY PRN #30 powd.pack PRN Reason: Constipation Sennosides/Docusate Sodium [Senna Plus] 2 each PO BID #60 tablet Home Medications: Atenolol [Tenormin] 75 mg DAILY 06/10/17 [History] Folic Acid 1 mg PO DAILY 06/10/17 [History] Levothyroxine [Synthroid] 125 mcg PO DAILY 06/10/17 [History] Methotrexate [Otrexup] 15 mg PO QWEEK 06/10/17 [History] Rivaroxaban [Xarelto] 20 mg PO DAILY 06/10/17 [History] Albuterol Sulfate [Albuterol Inhaler] 2 puff IH Q4-6H PRN 06/12/17 [History] Fluticasone/Salmeterol [Advair Hfa 230-21 Mcg Inhaler] 2 puff IH BID 06/12/17 [ History] Latanoprost [Xalatan] 1 drop BOTH EYES QPM 06/12/17 [History] Polyethylene Glycol 3350 [MiraLAX] 17 gm PO DAILY PRN #30 powd.pack 06/13/17 [Rx ] Sennosides/Docusate Sodium [Senna Plus] 2 each PO BID #60 tablet 06/13/17 [Rx] Allergies/Adverse Reactions: 3 Allergy/AdvReac Type Severity Reaction Status Date / Time cephalexin Allergy Hives Verified 06/10/17 19:00 Procedures/tests Complete & Pending: Procedures Performed prior 72 hours Category Date Time Status ECG 12 lead ECG [ECG] Routine Y 06/11/17 13:17 Completed Date of admission: 06/10/17 20:02 Primary care physician: Jimenez Ramirez MD Consults: 06/11/17 03:12 Consult to Nutrition [CONS] Routine Comment: Consulting Provider: NUTRITION Reason for Dietary Consult: MST Score Discharging clinician: Cielo Mei Anticipated date of discharge: 06/13/17 - Patient Status Disposition: Home, Self-Care Functional capacity at discharge: independent ambulation Overall status at discharge: patient is back to baseline - Discharge Instructions Follow Up With: Jimenez Ramirez MD [Primary Care Provider] - - Diet and Activity Activity: increase activity as tolerated Diet: advance to your usual diet Interval History: Seen and examined at bedside. Patient reports having 2 large bowel movements yesterday evening and says he feels much better. No abdominal pain. No recurrence of hematuria. Has follow-up with cardiology this Sunday. States he feels better and wants to go home. Hospital course: See assessment and plan for hospital course. - Time Spent with Patient Total time spent providing and/or coordinating discharge services: - Constitutional Vitals: Temp Pulse Resp BP Pulse Ox 98.2 F 60 18 127/85 97 06/13/17 10:32 06/13/17 10:32 06/13/17 10:32 06/13/17 10:32 06/13/17 10:32 General appearance: Present: A&O X 3, no acute distress, answers questions appropriately - Head Head exam: Present: atraumatic, normocephalic - Eye Eye exam: Present: PERRL, conjuntiva pink, sclera anicteric Pupils: Present: PERRL - Neck Neck exam general surgery: Present: supple, trachea midline. Absent: lymphadenopathy - Respiratory Respiratory exam: Present: CTAB. Absent: accessory muscle use, rales, rhonchi, wheezes - Cardiovascular Cardiovascular exam: Present: RRR, +S1, +S2. Absent: diastolic murmur, gallop, rubs, systolic murmur - GI/Abdominal GI/Abdominal exam: Present: normal bowel sounds, soft, no peritoneal signs. Absent: distended, tenderness - Extremities Exam Extremities exam: Present: warm, radial pulses palpable and symmetrical. Absent : calf tenderness, cyanotic, pedal edema - Neurological Exam Neurological exam: Present: CN II-XII intact, oriented X3, no focal deficits. Absent: pronater drift, facial droop, speech deficit - Skin Skin exam: Present: dry, intact
== END 2017-06-13 15:36 | disposition home or self-care (01) ==
LOC: 3NENU 16:41 → EMEROO 16:41 → 3NENU 20:55 → 3ANU 06-11 16:38
PROVIDERS: ADMIT Internal Medicine; ATTEND Internal Medicine

== ENCOUNTER 2017-07-30 09:30 | Inpatient (IN) ==
[2017-07-30] MEDS ORDERED: Ibuprofen 400 MG TABLET PO PRN (10:27)
[2017-07-30] MEDS ORDERED: Naloxone 0.4 MG/ML INJ IVP PRN (10:27)
[2017-07-30] MEDS ORDERED: Acetaminophen 325 MG TABLET PO PRN (10:27)
[2017-07-30] MEDS ORDERED: Mag Hydrox/Al Hydrox/Simeth 30 ML UDC PO PRN (10:27)
[2017-07-30 11:02] LABS: Basophils # 0.1 K/mcL (0.0-0.2); Basophils % 0.6 %; Eosinophils # 0.3 K/mcL (0.0-0.6); Eosinophils % 3.4 %; Hematocrit 45.1 % (37.5-50.1); Hemoglobin 14.7 g/dL (12.9-16.9); Immature Granulocytes % 0.4 % (0-4); Lymphocytes # 1.6 K/mcL (0.6-4.6); Lymphocytes % 19.1 %; Mean Corpuscular HGB Conc 32.6 g/dL (31.6-35.5); Mean Corpuscular Volume 95.1 fL (83.0-100.0); Mean Platelet Volume 10.3 fL (9.4-12.4); Monocytes # 0.5 K/mcL (0.0-1.3); Neutrophils # 5.8 K/mcL (1.6-8.9); Platelet Count 222 K/mcL (140-400); Red Blood Count 4.74 M/mcL (4.19-5.50); Red Cell Distribution Width 14.2 % (11.5-14.5); Segmented Neutrophils % 70.5 %
[2017-07-30 11:12] LABS: BUN/Creatinine Ratio 11 (6-26); Blood Urea Nitrogen 12 mg/dL (8-26); Calcium 9.1 mg/dL (8.6-10.8); Carbon Dioxide 22 mEq/L (19-29); Chloride 106 mEq/L (98-109); Glucose 100 mg/dL (70-99); Osmolality,Calculated 284 (280-300); Potassium 4.3 mEq/L (3.5-4.5); Sodium 137 mEq/L (136-145); eGFR For African Americans > 60 (> 60); eGFR For Non-African Americans > 60 (> 60)
--- NOTE | 2017-07-30 12:24 | History & Physical Report ---
Date of Encounter: 07/30/17 Time of Encounter: 11:30 24 Hour HP Update - Instructions Instructions: If the History and Physical is less than 30 days old and was completed prior to A.M. admission and or procedure and has NOT been updated on calendar day of procedure please complete this update prior to performing procedure. - Update Patient reports changes in Medical Condition: No Changes in examination, assessment, or condition: No Changes in Medication: No Preop tests/diagnostics Reviewed: Yes Additions to current History and Physical: Patient admitted for sotalol initiation. Office note placed in chart. - Pre-Operative Checklist Preoperative Checklist Indicated: No Prophylactic Antibiotic Ordered: No Home Medications Include Beta Carmela: No Is VTE Prophylaxis Indicated?: Yes (On anticoagulation.)
--- NOTE | 2017-07-30 12:27 | Event Note ---
Date of Encounter: 07/30/17 Time of Encounter: 11:30 - Cardiology Event Note Patient presents for sotalol admission. Patient has known atrial fibrillation and follows with Dr.John Otoole in outpatient setting, office not placed on chart. ECG today with atrial fibrillation, HR 67, QT 388/QTc 403ms. Creatinine 1.06. Patient is on xarelto for anticoagulation. Denies missed doses of xarelto in the past 30 days. Discussed and reviewed with Dr.John Otoole, will start sotalol 80mg BID. Will check labs and ECG daily.
[2017-07-30] MEDS ORDERED: *HR* Methotrexate 2.5 MG TABLET PO SCH (13:00)
--- NOTE | 2017-07-30 15:17 | Electrocardiograph Report ---
[address] [address] Test Date: 2017-07-30 Pat Name: Mika Mendoza Department: 102 Room: 2NE21 Gender: M Analysis Manager: : 1955 Requested By: Kellie Hernandez Order Number: [id number] Reading MD: Miller Ayala MD Measurements Intervals [place] Rate: 67 P: [place]: 0 QRS: 30 QRSD: 99 T: -2 QT: 388 QTc: 403 Interpretive Statements ATRIAL FIBRILLATION Electronically Signed On 07-30-2017 15:15:48 EST by Miller Ayala MD
[2017-07-30] MEDS: Folic Acid 1 MG TABLET PO SCH (17:33)
[2017-07-30] MEDS: Latanoprost 2.5 ML BOTTLE BOTH EYES SCH (17:35)
[2017-07-30] MEDS ORDERED: (Brimonidine Tartrate/Timolol [Combigan 0.2%-0.5% Eye) OP SCH (18:00)
[2017-07-30] MEDS: Budesonide/Formoterol 160/4.5 MDI IH SCH (20:48)
[2017-07-31 05:11] LABS: BUN/Creatinine Ratio 13 (6-26); Blood Urea Nitrogen 12 mg/dL (8-26); Calcium 9.2 mg/dL (8.6-10.8); Carbon Dioxide 24 mEq/L (19-29); Chloride 105 mEq/L (98-109); Glucose 94 mg/dL (70-99); Osmolality,Calculated 284 (280-300); Potassium 4.2 mEq/L (3.5-4.5); Sodium 137 mEq/L (136-145); eGFR For African Americans > 60 (> 60); eGFR For Non-African Americans > 60 (> 60)
[2017-07-31] MEDS: *HR* Rivaroxaban 10 MG TABLET PO SCH (08:39)
--- NOTE | 2017-07-31 10:23 | Electrophysiology ProgressNote ---
Date of Encounter: 07/31/17 Time of Encounter: 09:30 Assessment and Plan (1) Atrial fibrillation Current Visit: No Status: Chronic Per EP: -Has known PAF. -Currently s/p 2 doses of sotalol. -Baseline ECG with atrial fibrillation, HR 67. QT 388/QTc 403ms. -ECG today with atrial fibrillation, HR 55. QT 425/QTc 414ms. -On xarelto for anticoagulation. Has not missed doses in the past 30 days. -Continue sotalol. Re-check ECG in am. -Will make NPO after midnight. -Atenolol was stopped due to bradycardia. -Plan for DCCV in am if patient does not convert to SR. Qualifiers: Atrial fibrillation type: paroxysmal Qualified Code(s): I48.0 - Paroxysmal atrial fibrillation (2) COPD (chronic obstructive pulmonary disease) Current Visit: No Status: Chronic Per EP: -KNown COPD. -Continue home medications. Qualifiers: COPD type: unspecified COPD Qualified Code(s): J44.9 - Chronic obstructive pulmonary disease, unspecified (3) Thyroid disease Current Visit: No Status: Chronic Per EP: -Known Grave's disease. -Continue home medications. Discussion w patient/family: The assessment and plan as outlined above was discussed with the patient who expressed understanding and agreement. All questions were answered. Thank you for involving us in the care of your patient. Please call with any questions. Discussed and reviewed with Dr.John Otoole. Subjective Principal diagnosis: atrial fibrillation Interval history: Patient states he feels well this morning. Denies complaints. Objective Vital Signs, Last 4 Hours Temp Pulse Resp BP Pulse Ox 07/31/17 06:38 97.7 F 60 15 148/103 98 General: Conversant, No Apparent Distress HEENT: Atraumatic, Normocephaly, Mucus Membranes Moist Neck: No JVD, Normal carotid pulses Cardiac: Normal S1 and S2, No Murmur, Other (Irregularly, irregular) Lungs: Normal Breath Sounds, No Wheeze, Rales, Rhonchi Neuro: Alert and responsive, No focal deficits noted Abdomen: Soft, Non-Tender Skin: No rashes noted on visualized skin Musculoskeletal: No Chest Wall Tenderness Extremities: No Clubbing, No Cyanosis, No Edema, Normal Pulses Results 07/30/17 10:45 07/31/17 04:29 Lab Results Active Medications Acetaminophen (Tylenol) 650 mg PO Q6HR PRN PRN Reason: Mild Pain (1-3) Stop: 01/29/18 10:28 Al Hydrox/Mg Hydrox/Simethicone (Maalox) 15 ml PO Q6HR PRN PRN Reason: Dyspepsia Stop: 01/29/18 10:28 Albuterol Sulfate (Albuterol Inhaler) 2 puff IH Q4H PRN PRN Reason: Dyspnea Stop: 01/29/18 12:51 Budesonide/Formoterol Fumarate (Symbicort) 2 puff IH BIDRESP SYDNEE Stop: 01/29/18 22:01 Last Admin: 07/30/17 20:48 Dose: 2 puff Folic Acid (Folic Acid) 1 mg PO QPM [facility] Stop: 01/29/18 18:01 Last Admin: 07/30/17 17:33 Dose: 1 mg Ibuprofen (Motrin) 400 mg PO Q6HR PRN PRN Reason: Mild Pain (1-3) Stop: 01/29/18 10:28 Latanoprost (Xalatan) 1 drop BOTH EYES QPM SYDNEE PRN Reason: Protocol Stop: 01/29/18 18:01 Last Admin: 07/30/17 17:35 Dose: 1 drop Levothyroxine Sodium (Synthroid) 125 mcg PO 0630 [facility] Stop: 01/30/18 06:31 Last Admin: 07/31/17 06:55 Dose: 125 mcg Methotrexate (Otrexup) 12.5 mg PO Tu [facility] Stop: 01/30/18 18:01 Naloxone HCl (Narcan) 0.4 mg IVP Q2MIN PRN PRN Reason: Opioid Reversal Stop: 01/29/18 10:28 Pharmacy Profile Note (Patient Taking Own Medication) 0 each OP QPM [facility] Stop: 01/29/18 18:01 Last Admin: 07/30/17 17:34 Dose: Not Given Polyethylene Glycol (Miralax) 17 gm PO DAILY PRN PRN Reason: Constipation Stop: 01/29/18 12:51 Rivaroxaban (Xarelto) 20 mg PO DAILY [facility] Stop: 01/30/18 09:01 Last Admin: 07/31/17 08:39 Dose: 20 mg Sotalol HCl (Betapace) 80 mg PO Q12HR [facility] Stop: 01/29/18 18:01 Last Admin: 07/31/17 05:59 Dose: 80 mg Laboratory Tests 07/30/17 07/31/17 10:45 04:29 Creatinine 1.06 0.96 - Imaging and Cardiology Echo: report reviewed - EKG Interpretation EKG results cardiology: personally reviewed (ECG today with atrial fibrillation , HR 55. QT 425/QTc 414ms.), other (Average HR previous 12 hours noted to be 57 , atrial fibrillation. Longest pause 2.5seconds. PVCs noted.) - VTE Reasons for not Prescribing Prophylaxis: Not indicated-Anticoagulated or INR therapeutic Consult Discharge Plan - Plan Referrals: Jimenez Ramirez MD [Primary Care Provider] - 08/08/17 2:15 pm
[2017-07-31] MEDS: Budesonide/Formoterol 160/4.5 MDI IH SCH ×2 (11:05→20:12)
[2017-07-31] MEDS ORDERED: *HR* Methotrexate 2.5 MG TABLET PO SCH (18:00)
[2017-07-31] MEDS: Folic Acid 1 MG TABLET PO SCH (18:22)
[2017-07-31] MEDS: Latanoprost 2.5 ML BOTTLE BOTH EYES SCH (18:23)
[2017-08-01 04:57] LABS: BUN/Creatinine Ratio 13 (6-26); Blood Urea Nitrogen 13 mg/dL (8-26); Calcium 8.9 mg/dL (8.6-10.8); Carbon Dioxide 23 mEq/L (19-29); Chloride 107 mEq/L (98-109); Glucose 95 mg/dL (70-99); Osmolality,Calculated 286 (280-300); Sodium 138 mEq/L (136-145); eGFR For African Americans > 60 (> 60); eGFR For Non-African Americans > 60 (> 60)
--- NOTE | 2017-08-01 05:52 | Electrocardiograph Report ---
[place] [address] Test Date: 2017-07-31 Pat Name: Mika Mendoza Department: 111 Room: 2NE21 Gender: M Product Manager [employer]: JOCY : 1955 Requested By: Kellie Hernandez Order Number: [id number] Reading MD: Miller Ayala MD Measurements Intervals [place] Rate: 55 P: IN: 0 QRS: 11 QRSD: 97 T: 6 QT: 425 QTc: 414 Interpretive Statements ATRIAL FIBRILLATION WITH SLOW VENTRICULAR RESPONSE WITH ABERRANT CONDUCTION OR VENTRICULAR PREMATURE COMPLEXES Electronically Signed On 08-01-2017 5:50:49 EST by Miller Ayala MD
[2017-08-01] MEDS: Budesonide/Formoterol 160/4.5 MDI IH SCH ×2 (08:03→20:03)
--- NOTE | 2017-08-01 10:05 | Event Note ---
Date of Encounter: 08/01/17 Time of Encounter: 09:30 - Cardiology Event Note Plan for cardioversion today for atrial fibrillation. Risks versus benefits of cardioversion explained to patient. Patient states understanding and agreeable to proceed. Patient is s/p 4 doses of sotalol. ECG today with atrial fibrillation, HR 68. QT 404/ QTc 421ms. Patient is on xarelto for anticoagulation and denies missed doses in the past 30 days. Further recommendatiosn pending cardioversion. Plan for discharge tomorrow morning.
[2017-08-01] MEDS ORDERED: 0.9 % Sodium Chloride 500 ML IVC ONE (10:31)
[2017-08-01] MEDS: *HR* Rivaroxaban 10 MG TABLET PO SCH (10:51)
[2017-08-01] MEDS: *HR* FentaNYL (PF) 100 MCG/2 ML VIAL IVP PRN ×2 (11:07→11:11)
[2017-08-01] MEDS: *HR* Midazolam HCl 5 MG/5 ML VIAL IVP PRN ×2 (11:07→11:11)
--- NOTE | 2017-08-01 13:14 | Electrocardiograph Report ---
[address] [address] Test Date: 2017-08-01 Pat Name: Mika Mendoza Department: 111 Room: 2NE21 Gender: M Mobile Device Developer: [facility] : 1955 Requested By: Kellie Hernandez Order Number: [id number] Reading MD: Miller Ayala MD Measurements Intervals [place] Rate: 68 P: [place]: 0 QRS: 20 QRSD: 96 T: -6 QT: 404 QTc: 421 Interpretive Statements ATRIAL FIBRILLATION Electronically Signed On 08-01-2017 13:13:04 EST by Miller Ayala MD
--- NOTE | 2017-08-01 15:51 | Electrocardiograph Report ---
[address] [id number] Test Date: 2017-08-01 Pat Name: Mika Mendoza Department: 101 Room: 2NE21 Gender: M Hotel Operation Manager: : 1955 Requested By: Griffin Otoole Order Number: [id number] Reading MD: Miller Ayala MD Measurements Intervals [place] Rate: 60 P: 37 NE: 268 QRS: 5 QRSD: 100 T: -1 QT: 437 QTc: 437 Interpretive Statements SINUS RHYTHM WITH FIRST DEGREE AV BLOCK WITH OCCASIONAL SUPRAVENTRICULAR PREMATURE COMPLEXES POSSIBLE LEFT ATRIAL ENLARGEMENT Electronically Signed On 08-01-2017 15:49:38 EST by Miller Ayala MD
[2017-08-01] MEDS: Folic Acid 1 MG TABLET PO SCH (17:46)
[2017-08-01] MEDS: Latanoprost 2.5 ML BOTTLE BOTH EYES SCH (17:47)
[2017-08-02 05:04] LABS: BUN/Creatinine Ratio 16 (6-26); Blood Urea Nitrogen 15 mg/dL (8-26); Calcium 8.8 mg/dL (8.6-10.8); Carbon Dioxide 25 mEq/L (19-29); Chloride 106 mEq/L (98-109); Glucose 91 mg/dL (70-99); Osmolality,Calculated 288 (280-300); Potassium 4.1 mEq/L (3.5-4.5); Sodium 139 mEq/L (136-145); eGFR For African Americans > 60 (> 60); eGFR For Non-African Americans > 60 (> 60)
[2017-08-02 07:16] VITALS: BP 137/93
[2017-08-02] MEDS ORDERED: *HR* Adenosine 6 MG/2 ML VIAL IVP ONE (07:47)
--- NOTE | 2017-08-02 08:18 | Discharge Summary ---
Date of Encounter: 08/02/17 Time of Encounter: 08:15 - Discharge Diagnosis (1) Atrial fibrillation Priority: Primary Status: Chronic Comments: Known PAF, admission for sotalol initiation. Qualifiers: Atrial fibrillation type: paroxysmal Qualified Code(s): I48.0 - Paroxysmal atrial fibrillation (2) COPD (chronic obstructive pulmonary disease) Priority: Secondary Status: Chronic Comments: Known COPD. Continued home medications while inpatient. Qualifiers: COPD type: unspecified COPD Qualified Code(s): J44.9 - Chronic obstructive pulmonary disease, unspecified (3) Thyroid disease Priority: Secondary Status: Chronic Comments: Known thyroid disease. Continued home medications while inpatient. - Discharge Medications Prescriptions: Sotalol [Betapace] 80 mg PO Q12HR #60 tablet Home Medications: Folic Acid 1 mg PO DAILY 06/10/17 [History] Levothyroxine [Synthroid] 125 mcg PO DAILY 06/10/17 [History] Methotrexate [Otrexup] 12.5 mg PO TU 06/10/17 [History] Rivaroxaban [Xarelto] 20 mg PO DAILY 06/10/17 [History] Albuterol Sulfate [Albuterol Inhaler] 2 puff IH Q4-6H PRN 06/12/17 [History] Latanoprost [Xalatan] 1 drop BOTH EYES QPM 06/12/17 [History] Polyethylene Glycol 3350 [MiraLAX] 17 gm PO DAILY PRN #30 powd.pack 06/13/17 [Rx ] Brimonidine Tartrate/Timolol [Combigan 0.2%-0.5% Eye Drops] 1 drop BOTH EYES QPM 07/30/17 [History] Fluticasone/Salmeterol [Advair Hfa 230-21 Mcg Inhaler] 2 puff IH BID 07/30/17 [ History] Sotalol [Betapace] 80 mg PO Q12HR #60 tablet 08/02/17 [Rx] Allergies/Adverse Reactions: 3 Allergy/AdvReac Type Severity Reaction Status Date / Time cephalexin Allergy Hives Verified 06/10/17 19:00 Procedures/tests Complete & Pending: Procedures Performed prior 72 hours Category Date Time Status ECG 12 lead ECG [ECG] AM 0600 Y 07/31/17 06:00 Completed ECG 12 lead ECG [ECG] AM 0600 Y 08/01/17 06:00 Completed ECG 12 lead ECG [ECG] AM 0600 Y 08/02/17 06:00 Ordered ECG 12 lead ECG [ECG] Routine Y 07/30/17 10:35 Completed ECG 12 lead ECG [ECG] Routine Y 08/01/17 11:20 Completed EV cardioversion Routine Y 07/31/17 16:20 Completed Date of admission: 07/30/17 09:30 Primary care physician: Jimenez Ramirez MD Discharging clinician: Kellie Hernandez Anticipated date of discharge: 08/02/17 - Patient Status Disposition: Home, Self-Care Condition: Good Functional capacity at discharge: uses cane/walker Overall status at discharge: patient is progressing back to baseline - Discharge Instructions Follow Up With: Jimenez Ramirez MD [Primary Care Provider] - 08/08/17 2:15 pm - Diet and Activity Activity: increase activity as tolerated Diet: advance to your usual diet - Hospital Course Hospital course: Mr. Mendoza is a 62 year old male with known PAF. Patient was a direct admission for sotalol initiation. Patient is currently on sotalol 80mg BID. Baseline ECG with atrial fibrillation HR 67 QT 388/QTc 403ms. ECG today with sinus bradycardia HR 57 QT 432/QTc 426ms. Pateint is s/p successful DCCV yesterday with two attempt to conversion to sinus rhythm. Patient is on xarelto for anticoagulation. Patient's atenolol has been stopped this admission to allow BP and HR room for sotalol. Patient is being prepped for discharge home today in stable condition. Patient's sotalol was sent as ERX throught [facility] and also is given a paper prescription. Patient has follow up appointment with Dr.John Otoole. - Time Spent with Patient Total time spent providing and/or coordinating discharge services: Less than 30 minutes Physical Examination Vital Signs, Last 4 Hours Temp Pulse Resp BP Pulse Ox 08/02/17 07:00 98.1 F 59 17 137/93 96 08/02/17 04:21 98.8 F 68 19 126/84 96 General: Conversant, No Apparent Distress HEENT: Atraumatic, Normocephaly, Mucus Membranes Moist Neck: No JVD, Normal carotid pulses Cardiac: Reg Rate and Rhythm, Normal S1 and S2, No Murmur Lungs: Normal Breath Sounds, No Wheeze, Rales, Rhonchi Neuro: Alert and responsive, No focal deficits noted Abdomen: Soft, Non-Tender Skin: No rashes noted on visualized skin Musculoskeletal: No Chest Wall Tenderness Extremities: No Clubbing, No Cyanosis, No Edema, Normal Pulses - VTE Reasons for not Prescribing Prophylaxis: Not indicated-Anticoagulated or INR therapeutic
[2017-08-02] MEDS: *HR* Rivaroxaban 10 MG TABLET PO SCH (09:09)
--- NOTE | 2017-08-02 18:18 | Electrocardiograph Report ---
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
== END 2017-08-02 10:10 | disposition home or self-care (01) | DRG 201 ==
LOC: 2NENU 09:30
PROVIDERS: ADMIT Internal Medicine Clinical Cardiac Electrophysiology; ATTEND Internal Medicine Clinical Cardiac Electrophysiology

== ENCOUNTER 2019-10-08 10:14 | Observation (INO) ==
[2019-10-08 10:47] LABS: Basophils # 0.1 K/mcL (0.0-0.2); Basophils % 0.8 %; Eosinophils # 0.2 K/mcL (0.0-0.6); Eosinophils % 2.1 %; Hematocrit 43.5 % (37.5-50.1); Hemoglobin 14.1 g/dL (12.9-16.9); Immature Granulocytes % 1.1 % (0-4); Lymphocytes # 2.8 K/mcL (0.6-4.6); Lymphocytes % 26.7 %; Mean Corpuscular HGB Conc 32.4 g/dL (31.6-35.5); Mean Corpuscular Hemoglobin 30.8 pg (28.0-33.3); Mean Platelet Volume 10.2 fL (9.4-12.4); Monocytes # 0.8 K/mcL (0.0-1.3); Monocytes % 7.9 %; Neutrophils # 6.4 K/mcL (1.6-8.9); Platelet Count 244 K/mcL (140-400); Red Blood Count 4.58 M/mcL (4.19-5.50); Red Cell Distribution Width 12.9 % (11.5-14.5); Segmented Neutrophils % 61.4 %; White Blood Count 10.5 K/mcL (4.3-11.1)
[2019-10-08 10:53] LABS: INR 1.2; Prothrombin Time 13.6 Seconds (9.4-12.1)
[2019-10-08 11:07] LABS: BUN/Creatinine Ratio 12 (6-26); Blood Urea Nitrogen 13 mg/dL (8-23); Carbon Dioxide 27 mEq/L (23-29); Chloride 105 mEq/L (98-107); Glucose 117 mg/dL (70-105); Osmolality,Calculated 285 (280-300); Potassium 4.6 mEq/L (3.5-5.1); Sodium 137 mEq/L (136-145); eGFR For African Americans > 60 (> 60); eGFR For Non-African Americans > 60 (> 60)
[2019-10-08] MEDS ORDERED: Naloxone 0.4 MG/ML INJ IVP PRN (11:25)
[2019-10-08] MEDS ORDERED: 0.9 % Sodium Chloride 1,000 ML IVC ONE (13:32)
[2019-10-08] MEDS ORDERED: Ondansetron 4 MG/2 ML VIAL IVP ONE (13:38)
[2019-10-08] MEDS ORDERED: Ondansetron 4 MG/2 ML VIAL ONE (13:38)
[2019-10-08] MEDS ORDERED: Propofol 500 MG/50 ML INFUS..BTL ONE (13:56)
[2019-10-08] MEDS ORDERED: Lidocaine -MPF 2% 2 ML VIAL ONE (13:59)
[2019-10-08] MEDS ORDERED: *HR* PHENYLEPHRINE 1,000 MCG/10 ML SYRINGE IVP ONE (14:28)
[2019-10-08] MEDS ORDERED: *HR* Propofol 200 MG/20 ML VIAL IVP ONE (14:54)
[2019-10-08] MEDS: Ringers Solution, Lactated 1,000 ML IVC SCH (16:17)
[2019-10-08] MEDS: Latanoprost 2.5 ML BOTTLE BOTH EYES SCH (21:50)
[2019-10-09] MEDS ORDERED: Acetaminophen 325 MG TABLET PO PRN (01:20)
[2019-10-09 05:19] LABS: Basophils % 0.4 %; Eosinophils # 0.2 K/mcL (0.0-0.6); Eosinophils % 1.7 %; Hematocrit 31.1 % (37.5-50.1); Immature Granulocytes % 0.5 % (0-4); Lymphocytes # 2.9 K/mcL (0.6-4.6); Lymphocytes % 31.4 %; Mean Corpuscular HGB Conc 32.8 g/dL (31.6-35.5); Mean Corpuscular Hemoglobin 30.3 pg (28.0-33.3); Mean Corpuscular Volume 92.3 fL (83.0-100.0); Mean Platelet Volume 10.5 fL (9.4-12.4); Monocytes # 0.7 K/mcL (0.0-1.3); Monocytes % 7.5 %; Neutrophils # 5.4 K/mcL (1.6-8.9); Platelet Count 186 K/mcL (140-400); Red Blood Count 3.37 M/mcL (4.19-5.50); Red Cell Distribution Width 12.9 % (11.5-14.5); Segmented Neutrophils % 58.5 %; White Blood Count 9.2 K/mcL (4.3-11.1)
[2019-10-09] MEDS: Ringers Solution, Lactated 1,000 ML IVC SCH (05:19)
[2019-10-09 05:23] LABS: Hemoglobin 10.2 g/dL (12.9-16.9)
[2019-10-09 05:36] LABS: BUN/Creatinine Ratio 9 (6-26); Blood Urea Nitrogen 9 mg/dL (8-23); Carbon Dioxide 27 mEq/L (23-29); Chloride 108 mEq/L (98-107); Glucose 97 mg/dL (70-105); Osmolality,Calculated 285 (280-300); Potassium 4.1 mEq/L (3.5-5.1); Sodium 138 mEq/L (136-145); eGFR For African Americans > 60 (> 60); eGFR For Non-African Americans > 60 (> 60)
[2019-10-09 13:24] LABS: Hematocrit 31.4 % (37.5-50.1); Hemoglobin 10.2 g/dL (12.9-16.9); Mean Corpuscular HGB Conc 32.5 g/dL (31.6-35.5); Mean Corpuscular Volume 95.4 fL (83.0-100.0); Mean Platelet Volume 10.3 fL (9.4-12.4); Platelet Count 177 K/mcL (140-400); Red Blood Count 3.29 M/mcL (4.19-5.50); Red Cell Distribution Width 12.9 % (11.5-14.5); White Blood Count 7.7 K/mcL (4.3-11.1)
[2019-10-09] MEDS: Latanoprost 2.5 ML BOTTLE BOTH EYES SCH (19:56)
[2019-10-09] MEDS: Budesonide/Formoterol 160/4.5 1 PUFF INH IH SCH (20:21)
[2019-10-10 05:37] LABS: Basophils % 0.4 %; Eosinophils # 0.2 K/mcL (0.0-0.6); Eosinophils % 2.2 %; Hematocrit 29.9 % (37.5-50.1); Hemoglobin 10.2 g/dL (12.9-16.9); Immature Granulocytes % 0.4 % (0-4); Lymphocytes # 2.9 K/mcL (0.6-4.6); Lymphocytes % 34.8 %; Mean Corpuscular HGB Conc 34.1 g/dL (31.6-35.5); Mean Corpuscular Hemoglobin 30.9 pg (28.0-33.3); Mean Corpuscular Volume 90.6 fL (83.0-100.0); Mean Platelet Volume 10.2 fL (9.4-12.4); Monocytes # 0.7 K/mcL (0.0-1.3); Monocytes % 7.9 %; Neutrophils # 4.5 K/mcL (1.6-8.9); Platelet Count 185 K/mcL (140-400); Red Cell Distribution Width 12.8 % (11.5-14.5); Segmented Neutrophils % 54.3 %; White Blood Count 8.3 K/mcL (4.3-11.1)
[2019-10-10 05:52] LABS: BUN/Creatinine Ratio 8 (6-26); Blood Urea Nitrogen 8 mg/dL (8-23); Calcium 8.8 mg/dL (8.6-10.3); Carbon Dioxide 29 mEq/L (23-29); Chloride 105 mEq/L (98-107); Glucose 110 mg/dL (70-105); Osmolality,Calculated 285 (280-300); Potassium 3.7 mEq/L (3.5-5.1); Sodium 138 mEq/L (136-145); eGFR For African Americans > 60 (> 60); eGFR For Non-African Americans > 60 (> 60)
[2019-10-10 07:02] VITALS: BP 114/60
[2019-10-10] MEDS: Budesonide/Formoterol 160/4.5 1 PUFF INH IH SCH (07:33)
== END 2019-10-10 09:55 | disposition home or self-care (01) ==
LOC: EMEROOARM 10:14 → 3ANU 10:14 → SUATTDRO 13:35 → 3ANU 14:29
PROVIDERS: ADMIT Internal Medicine; ATTEND Internal Medicine
PROC: ENDOCCB (2019-10-08 14:30)

== ENCOUNTER 2022-03-11 20:43 | Inpatient (IN) ==
[2022-03-11 21:07] LABS: Basophils % 0.3 %; Eosinophils # 0.3 K/mcL (0.0-0.6); Hemoglobin 16.2 g/dL (12.9-16.9); Immature Granulocytes % 0.4 % (0-4); Lymphocytes # 2.1 K/mcL (0.6-4.6); Lymphocytes % 14.7 %; Mean Corpuscular HGB Conc 33.1 g/dL (31.6-35.5); Mean Corpuscular Hemoglobin 31.4 pg (28.0-33.3); Mean Platelet Volume 10.4 fL (9.4-12.4); Monocytes # 1.4 K/mcL (0.0-1.3); Monocytes % 9.7 %; Neutrophils # 10.4 K/mcL (1.6-8.9); Platelet Count 221 K/mcL (140-400); Red Blood Count 5.16 M/mcL (4.19-5.50); Red Cell Distribution Width 12.9 % (11.5-14.5); Segmented Neutrophils % 72.9 %; White Blood Count 14.2 K/mcL (4.3-11.1)
[2022-03-11] MEDS ORDERED: Morphine Sulfate 2 MG/ML SYRINGE IVP ONE (21:16)
[2022-03-11 21:28] LABS: BUN/Creatinine Ratio 11 (6-26); Blood Urea Nitrogen 13 mg/dL (8-23); Calcium 9.5 mg/dL (8.6-10.3); Carbon Dioxide 28 mEq/L (23-29); Chloride 101 mEq/L (98-107); Glucose 107 mg/dL (70-105); Osmolality,Calculated 285 (280-300); Potassium 4.5 mEq/L (3.5-5.1); Sodium 137 mEq/L (136-145); eGFR For African Americans > 60 (> 60); eGFR For Non-African Americans > 60 (> 60)
[2022-03-11] MEDS ORDERED: Ringers Solution, Lactated 1,000 ML IVC ONE (21:51)
[2022-03-11] MEDS ORDERED: metroNIDAZOLE 500 MG TABLET PO ONE (21:57)
[2022-03-11] MEDS ORDERED: Melatonin 3 MG TABLET PO PRN (22:27)
[2022-03-11] MEDS ORDERED: *HR* Promethazine 25 MG/ML VIAL IM PRN (22:27)
[2022-03-11] MEDS ORDERED: Naloxone 0.4 MG/ML INJ IVP PRN (22:27)
[2022-03-11] MEDS ORDERED: Ondansetron 4 MG/2 ML VIAL IVP PRN (22:27)
[2022-03-11] MEDS ORDERED: Ringers Solution, Lactated 1,000 ML IVC SCH (22:30)
[2022-03-11] MEDS: 0.9 % Sodium Chloride 1,000 ML IVC SCH (23:28)
[2022-03-11] MEDS: Piperacillin/Tazobactam 3.375 GM in 0.9 % Sodium Chloride Mini Bag 100 ML IVPB SCH (23:28)
[2022-03-12 02:25] LABS: Basophils % 0.2 %; Eosinophils # 0.2 K/mcL (0.0-0.6); Eosinophils % 1.1 %; Hematocrit 43.8 % (37.5-50.1); Immature Granulocytes % 0.5 % (0-4); Lymphocytes # 1.6 K/mcL (0.6-4.6); Lymphocytes % 12.1 %; Mean Corpuscular HGB Conc 33.3 g/dL (31.6-35.5); Mean Corpuscular Hemoglobin 31.9 pg (28.0-33.3); Mean Corpuscular Volume 95.6 fL (83.0-100.0); Mean Platelet Volume 10.9 fL (9.4-12.4); Monocytes # 1.1 K/mcL (0.0-1.3); Monocytes % 8.1 %; Neutrophils # 10.3 K/mcL (1.6-8.9); Platelet Count 157 K/mcL (140-400); Red Blood Count 4.58 M/mcL (4.19-5.50); White Blood Count 13.2 K/mcL (4.3-11.1)
[2022-03-12 02:35] LABS: INR 2.1; Prothrombin Time 23.3 Seconds (9.4-12.1)
[2022-03-12 02:42] LABS: Hemoglobin 14.6 g/dL (12.9-16.9)
[2022-03-12 02:46] LABS: BUN/Creatinine Ratio 12 (6-26); Blood Urea Nitrogen 11 mg/dL (8-23); Calcium 8.7 mg/dL (8.6-10.3); Carbon Dioxide 24 mEq/L (23-29); Chloride 103 mEq/L (98-107); Glucose 102 mg/dL (70-105); Magnesium 1.8 mg/dL (1.6-2.6); Osmolality,Calculated 280 (280-300); Potassium 3.8 mEq/L (3.5-5.1); Sodium 135 mEq/L (136-145); eGFR For African Americans > 60 (> 60); eGFR For Non-African Americans > 60 (> 60)
[2022-03-12] MEDS: Piperacillin/Tazobactam 3.375 GM in 0.9 % Sodium Chloride Mini Bag 100 ML IVPB SCH ×3 (06:13→22:40)
[2022-03-12] MEDS: 0.9 % Sodium Chloride 1,000 ML IVC SCH ×2 (08:51→17:53)
[2022-03-12] MEDS: Budesonide/Formoterol 80/4.5 1 PUFF INH IH SCH ×2 (10:37→21:11)
[2022-03-12] MEDS ORDERED: *HR* Heparin 5,000 UNIT/ML VIAL IVP PRN (13:24)
[2022-03-12] MEDS ORDERED: *HR* Heparin 5,000 UNIT/ML VIAL IVP ONE (13:24)
[2022-03-12] MEDS ORDERED: Heparin 25,000UNIT/250ML 1/2NS 25,000 UNIT/250 ML IV.SOLN IVC SCH (13:30)
[2022-03-12] MEDS: Heparin 25,000UNIT/250ML 1/2NS 25,000 UNIT/250 ML IV.SOLN IVC SCH (13:55)
[2022-03-12 14:52] LABS: Hematocrit 45.7 % (37.5-50.1); Mean Corpuscular HGB Conc 32.8 g/dL (31.6-35.5); Mean Corpuscular Hemoglobin 31.4 pg (28.0-33.3); Mean Corpuscular Volume 95.8 fL (83.0-100.0); Mean Platelet Volume 10.3 fL (9.4-12.4); Platelet Count 186 K/mcL (140-400); Red Blood Count 4.77 M/mcL (4.19-5.50); Red Cell Distribution Width 13.1 % (11.5-14.5); White Blood Count 13.4 K/mcL (4.3-11.1)
[2022-03-12] MEDS ORDERED: *HR* Rivaroxaban 10 MG TABLET PO SCH (17:00)
[2022-03-13] MEDS: 0.9 % Sodium Chloride 1,000 ML IVC SCH ×3 (03:28→23:11)
[2022-03-13 05:49] LABS: Basophils # 0.1 K/mcL (0.0-0.2); Basophils % 0.4 %; Eosinophils # 0.2 K/mcL (0.0-0.6); Eosinophils % 1.7 %; Hematocrit 43.8 % (37.5-50.1); Hemoglobin 14.2 g/dL (12.9-16.9); Immature Granulocytes % 0.5 % (0-4); Lymphocytes # 1.7 K/mcL (0.6-4.6); Lymphocytes % 14.4 %; Mean Corpuscular HGB Conc 32.4 g/dL (31.6-35.5); Mean Corpuscular Hemoglobin 31.6 pg (28.0-33.3); Mean Corpuscular Volume 97.6 fL (83.0-100.0); Mean Platelet Volume 11.2 fL (9.4-12.4); Monocytes % 8.5 %; Platelet Count 186 K/mcL (140-400); Red Blood Count 4.49 M/mcL (4.19-5.50); Red Cell Distribution Width 12.9 % (11.5-14.5); Segmented Neutrophils % 74.5 %; White Blood Count 12.1 K/mcL (4.3-11.1)
[2022-03-13] MEDS: Piperacillin/Tazobactam 3.375 GM in 0.9 % Sodium Chloride Mini Bag 100 ML IVPB SCH ×2 (06:09→14:49)
[2022-03-13] MEDS: *HR* Heparin 5,000 UNIT/ML VIAL IVP PRN (06:10)
[2022-03-13 06:14] LABS: BUN/Creatinine Ratio 10 (6-26); Blood Urea Nitrogen 11 mg/dL (8-23); Calcium 8.5 mg/dL (8.6-10.3); Carbon Dioxide 25 mEq/L (23-29); Chloride 101 mEq/L (98-107); Glucose 83 mg/dL (70-105); Osmolality,Calculated 279 (280-300); Sodium 135 mEq/L (136-145); eGFR For African Americans > 60 (> 60); eGFR For Non-African Americans > 60 (> 60)
[2022-03-13] MEDS: Heparin 25,000UNIT/250ML 1/2NS 25,000 UNIT/250 ML IV.SOLN IVC SCH (11:14)
[2022-03-13] MEDS: Budesonide/Formoterol 80/4.5 1 PUFF INH IH SCH ×2 (11:42→21:05)
[2022-03-13] MEDS: Latanoprost 2.5 ML BOTTLE BOTH EYES SCH (20:35)
[2022-03-14] MEDS: Piperacillin/Tazobactam 3.375 GM in 0.9 % Sodium Chloride Mini Bag 100 ML IVPB SCH ×4 (00:31→23:23)
[2022-03-14] MEDS: Heparin 25,000UNIT/250ML 1/2NS 25,000 UNIT/250 ML IV.SOLN IVC SCH ×2 (02:54→18:05)
[2022-03-14 05:59] LABS: Basophils % 0.4 %; Eosinophils # 0.3 K/mcL (0.0-0.6); Hematocrit 41.3 % (37.5-50.1); Hemoglobin 13.3 g/dL (12.9-16.9); Immature Granulocytes % 0.3 % (0-4); Lymphocytes # 1.7 K/mcL (0.6-4.6); Mean Corpuscular HGB Conc 32.2 g/dL (31.6-35.5); Mean Corpuscular Hemoglobin 30.9 pg (28.0-33.3); Mean Platelet Volume 11.1 fL (9.4-12.4); Monocytes # 0.7 K/mcL (0.0-1.3); Monocytes % 9.2 %; Neutrophils # 5.2 K/mcL (1.6-8.9); Platelet Count 194 K/mcL (140-400); Red Cell Distribution Width 12.6 % (11.5-14.5); Segmented Neutrophils % 65.1 %; White Blood Count 7.9 K/mcL (4.3-11.1)
[2022-03-14 06:54] LABS: Magnesium 1.8 mg/dL (1.6-2.6); Phosphorous 2.2 mg/dL (2.7-4.5)
[2022-03-14 06:56] LABS: BUN/Creatinine Ratio 10 (6-26); Blood Urea Nitrogen 10 mg/dL (8-23); Calcium 8.7 mg/dL (8.6-10.3); Carbon Dioxide 23 mEq/L (23-29); Chloride 104 mEq/L (98-107); Glucose 70 mg/dL (70-105); Osmolality,Calculated 281 (280-300); Potassium 4.4 mEq/L (3.5-5.1); Sodium 137 mEq/L (136-145); eGFR For African Americans > 60 (> 60); eGFR For Non-African Americans > 60 (> 60)
[2022-03-14] MEDS: Loratadine 10 MG TABLET PO SCH (08:13)
[2022-03-14] MEDS: 0.9 % Sodium Chloride 1,000 ML IVC SCH ×2 (08:15→17:22)
[2022-03-14] MEDS: Budesonide/Formoterol 80/4.5 1 PUFF INH IH SCH ×2 (10:31→22:03)
[2022-03-14] MEDS ORDERED: Iopamidol - 370 500 ML MLS IVP ONE (12:58)
[2022-03-14] MEDS ORDERED: Iopamidol - 370 500 ML MLS PO ONE (13:43)
[2022-03-14] MEDS ORDERED: 0.9 % Sodium Chloride 1,000 ML IVC SCH (20:00)
[2022-03-14] MEDS: Latanoprost 2.5 ML BOTTLE BOTH EYES SCH (20:58)
[2022-03-15 07:26] LABS: Basophils % 0.6 %; Eosinophils # 0.3 K/mcL (0.0-0.6); Eosinophils % 6.3 %; Hematocrit 41.1 % (37.5-50.1); Hemoglobin 13.3 g/dL (12.9-16.9); Immature Granulocytes % 0.6 % (0-4); Lymphocytes # 1.3 K/mcL (0.6-4.6); Lymphocytes % 24.8 %; Mean Corpuscular HGB Conc 32.4 g/dL (31.6-35.5); Mean Corpuscular Hemoglobin 31.1 pg (28.0-33.3); Mean Corpuscular Volume 96.3 fL (83.0-100.0); Mean Platelet Volume 11.3 fL (9.4-12.4); Monocytes # 0.5 K/mcL (0.0-1.3); Neutrophils # 3.1 K/mcL (1.6-8.9); Platelet Count 148 K/mcL (140-400); Red Blood Count 4.27 M/mcL (4.19-5.50); Red Cell Distribution Width 12.8 % (11.5-14.5); Segmented Neutrophils % 58.7 %; White Blood Count 5.2 K/mcL (4.3-11.1)
[2022-03-15] MEDS: Budesonide/Formoterol 80/4.5 1 PUFF INH IH SCH ×2 (08:04→19:39)
[2022-03-15 08:11] LABS: BUN/Creatinine Ratio 9 (6-26); Blood Urea Nitrogen 8 mg/dL (8-23); Calcium 8.4 mg/dL (8.6-10.3); Carbon Dioxide 20 mEq/L (23-29); Chloride 106 mEq/L (98-107); Glucose 78 mg/dL (70-105); Osmolality,Calculated 281 (280-300); Sodium 137 mEq/L (136-145); eGFR For African Americans > 60 (> 60); eGFR For Non-African Americans > 60 (> 60)
[2022-03-15] MEDS: Piperacillin/Tazobactam 3.375 GM in 0.9 % Sodium Chloride Mini Bag 100 ML IVPB SCH ×2 (08:15→15:45)
[2022-03-15] MEDS: Loratadine 10 MG TABLET PO SCH (08:16)
[2022-03-15] MEDS: Heparin 25,000UNIT/250ML 1/2NS 25,000 UNIT/250 ML IV.SOLN IVC SCH (10:19)
[2022-03-15] MEDS: 0.9 % Sodium Chloride 1,000 ML IVC SCH (13:12)
[2022-03-15] MEDS: Latanoprost 2.5 ML BOTTLE BOTH EYES SCH (19:54)
[2022-03-15] MEDS: *HR* Heparin 5,000 UNIT/ML VIAL IVP PRN (21:15)
[2022-03-16] MEDS: Heparin 25,000UNIT/250ML 1/2NS 25,000 UNIT/250 ML IV.SOLN IVC SCH (00:46)
[2022-03-16] MEDS: Piperacillin/Tazobactam 3.375 GM in 0.9 % Sodium Chloride Mini Bag 100 ML IVPB SCH ×4 (00:48→23:52)
[2022-03-16 03:48] LABS: Basophils % 0.5 %; Eosinophils # 0.4 K/mcL (0.0-0.6); Eosinophils % 6.3 %; Hematocrit 39.1 % (37.5-50.1); Hemoglobin 12.9 g/dL (12.9-16.9); Immature Granulocytes % 0.7 % (0-4); Immature Platelets 5.9 % (1.1-6.1); Lymphocytes # 1.9 K/mcL (0.6-4.6); Lymphocytes % 31.6 %; Mean Corpuscular Hemoglobin 30.9 pg (28.0-33.3); Mean Corpuscular Volume 93.5 fL (83.0-100.0); Mean Platelet Volume 10.7 fL (9.4-12.4); Monocytes # 0.5 K/mcL (0.0-1.3); Monocytes % 8.9 %; Platelet Count 231 K/mcL (140-400); Red Blood Count 4.18 M/mcL (4.19-5.50); Red Cell Distribution Width 12.7 % (11.5-14.5); White Blood Count 5.9 K/mcL (4.3-11.1)
[2022-03-16 04:06] LABS: BUN/Creatinine Ratio 5 (6-26); Blood Urea Nitrogen 5 mg/dL (8-23); Calcium 8.6 mg/dL (8.6-10.3); Carbon Dioxide 25 mEq/L (23-29); Chloride 108 mEq/L (98-107); Glucose 86 mg/dL (70-105); Magnesium 1.6 mg/dL (1.6-2.6); Osmolality,Calculated 289 (280-300); Phosphorous 2.7 mg/dL (2.7-4.5); Potassium 3.2 mEq/L (3.5-5.1); Sodium 141 mEq/L (136-145); eGFR For African Americans > 60 (> 60); eGFR For Non-African Americans > 60 (> 60)
[2022-03-16] MEDS: Budesonide/Formoterol 80/4.5 1 PUFF INH IH SCH ×2 (07:38→20:07)
[2022-03-16] MEDS: Simethicone 80 MG TAB.CHEW PO SCH ×3 (09:32→20:39)
[2022-03-16] MEDS: Loratadine 10 MG TABLET PO SCH (09:32)
[2022-03-16] MEDS ORDERED: 0.9 % Sodium Chloride 500 ML ONE (13:16)
[2022-03-16] MEDS ORDERED: *HR* Rivaroxaban 10 MG TABLET PO SCH (17:00)
[2022-03-16] MEDS: Latanoprost 2.5 ML BOTTLE BOTH EYES SCH (20:39)
[2022-03-17] MEDS: Piperacillin/Tazobactam 3.375 GM in 0.9 % Sodium Chloride Mini Bag 100 ML IVPB SCH (06:28)
[2022-03-17] MEDS: 0.9 % Sodium Chloride 1,000 ML IVC SCH (07:22)
[2022-03-17] MEDS ORDERED: Acetaminophen 325 MG TABLET PO PRN (07:48)
[2022-03-17] MEDS: Simethicone 80 MG TAB.CHEW PO SCH (08:06)
[2022-03-17] MEDS: Budesonide/Formoterol 80/4.5 1 PUFF INH IH SCH (08:06)
[2022-03-17] MEDS: Loratadine 10 MG TABLET PO SCH (08:06)
[2022-03-17 11:28] VITALS: BP 161/85; PULSE 62; TEMP 97.7; O2SAT 96
== END 2022-03-17 13:22 | disposition home or self-care (01) | DRG 392 ==
LOC: 3ANU 20:43 → EMEROOARM 20:43 → SUATTDRO 22:03 → 3ANU 22:40 → SUATTDRO 03-12 13:20 → 3ANU 03-16 22:56
PROVIDERS: ADMIT Internal Medicine; ATTEND Family Medicine

== ENCOUNTER 2022-03-18 14:41 | Inpatient (IN) ==
[2022-03-18 15:58] LABS: Basophils # 0.1 K/mcL (0.0-0.2); Eosinophils # 0.3 K/mcL (0.0-0.6); Hematocrit 49.6 % (37.5-50.1); Immature Granulocytes % 0.7 % (0-4); Lymphocytes # 1.6 K/mcL (0.6-4.6); Lymphocytes % 16.2 %; Mean Corpuscular HGB Conc 33.1 g/dL (31.6-35.5); Mean Corpuscular Hemoglobin 30.8 pg (28.0-33.3); Mean Corpuscular Volume 93.1 fL (83.0-100.0); Mean Platelet Volume 10.9 fL (9.4-12.4); Monocytes # 0.5 K/mcL (0.0-1.3); Monocytes % 5.5 %; Neutrophils # 7.1 K/mcL (1.6-8.9); Platelet Count 289 K/mcL (140-400); Red Blood Count 5.33 M/mcL (4.19-5.50); Red Cell Distribution Width 12.8 % (11.5-14.5); Segmented Neutrophils % 73.6 %
[2022-03-18 16:01] LABS: Hemoglobin 16.4 g/dL (12.9-16.9); White Blood Count 9.6 K/mcL (4.3-11.1)
[2022-03-18 16:29] LABS: Alanine Aminotransferase 17 Units/L (7-52); Albumin 4.2 g/dL (3.5-5.7); Albumin/Globulin Ratio 1.2 (1.1-2.2); Alkaline Phosphatase 58 Units/L (34-104); Amylase 23 Units/L (29-103); Aspartate Amino Transferase 40 Units/L (13-39); BUN/Creatinine Ratio 7 (6-26); Bilirubin,Indirect 0.4 mg/dL (0.0-1.0); Bilirubin,Total 0.4 mg/dL (0.3-1.0); Blood Urea Nitrogen 7 mg/dL (8-23); Calcium 9.5 mg/dL (8.6-10.3); Carbon Dioxide 18 mEq/L (23-29); Chloride 107 mEq/L (98-107); Globulin 3.5 g/dL (2.4-3.5); Glucose 89 mg/dL (70-105); Lipase 17 Units/L (11-82); Osmolality,Calculated 287 (280-300); Potassium 4.1 mEq/L (3.5-5.1); Sodium 140 mEq/L (136-145); Total Protein 7.7 g/dL (6.4-8.9); eGFR For African Americans > 60 (> 60); eGFR For Non-African Americans > 60 (> 60)
[2022-03-18] MEDS ORDERED: Morphine Sulfate 2 MG/ML SYRINGE IVP ONE (16:38)
[2022-03-18 16:44] LABS: Bilirubin,Urine Negative (Negative); Blood,Urine Negative (Negative); Clarity,Urine Clear (Clear); Color,Urine Yellow (Yellow); Glucose,Urine (UA) Normal (Normal); Ketones,Urine 10 mg/dL (Negative); Leukocyte Esterase,Urine Trace (Negative); Mucus,Urine Few per lpf (None-Few); Nitrite,Urine Negative (Negative); PH,Urine 5.5 pH Units (5.0-8.0); Protein,Urine Trace mg/dL (Neg-Trace); RBC,Urine 0-3 per hpf (0-3); Specific Gravity,Urine 1.027 (1.010-1.025); Urobilinogen,Urine Normal (Normal); WBC,Urine 0-3 per hpf (0-3)
[2022-03-18] MEDS ORDERED: Iopamidol - 370 500 ML MLS IVP ONE (16:45)
[2022-03-18] MEDS ORDERED: Ondansetron 4 MG/2 ML VIAL IVP ONE (17:13)
[2022-03-18] MEDS ORDERED: *HR* LORazepam 2 MG/ML VIAL IVP ONE (18:54)
[2022-03-18] MEDS ORDERED: Tetracaine/Benzocaine/Butamben 1 SPRAY AEROSOL MM ONE ×2 (18:55→23:59)
[2022-03-18] MEDS ORDERED: MetroNIDAZOLE 500 MG/100 ML 500 MG/100 ML BAG IVPB ONE (19:42)
[2022-03-18] MEDS ORDERED: Naloxone 0.4 MG/ML INJ IVP PRN (19:44)
[2022-03-18] MEDS ORDERED: Melatonin 3 MG TABLET PO PRN (19:55)
[2022-03-18] MEDS ORDERED: Ondansetron 4 MG/2 ML VIAL IVP PRN (19:55)
[2022-03-18] MEDS ORDERED: *HR* Heparin 5,000 UNIT/ML VIAL IVP PRN ×2 (20:32)
[2022-03-18] MEDS ORDERED: *HR* Heparin 5,000 UNIT/ML VIAL IVP ONE (20:32)
[2022-03-18] MEDS ORDERED: Heparin 25,000UNIT/250ML 1/2NS 25,000 UNIT/250 ML IV.SOLN IVC SCH ×2 (20:45)
[2022-03-18] MEDS ORDERED: hydrALAZINE 10 MG TABLET PO PRN (20:53)
[2022-03-18 22:16] LABS: Heparin anti-factor XA UFH 0.14 IU/mL (0.30-0.70)
[2022-03-18 22:17] LABS: INR 1.2; Prothrombin Time 13.4 Seconds (9.4-12.1)
[2022-03-18] MEDS: Latanoprost 2.5 ML BOTTLE BOTH EYES SCH (22:56)
[2022-03-18] MEDS: Ringers Solution, Lactated 1,000 ML IVC SCH (23:34)
[2022-03-19] MEDS: MetroNIDAZOLE 500 MG/100 ML 500 MG/100 ML BAG IVPB SCH ×3 (06:31→20:30)
[2022-03-19] MEDS: Levothyroxine Sodium 100 MCG VIAL IVP SCH (08:40)
[2022-03-19] MEDS: Ringers Solution, Lactated 1,000 ML IVC SCH (12:51)
[2022-03-19] MEDS ORDERED: hydrALAZINE 10 MG TABLET PO PRN (13:26)
[2022-03-19] MEDS: D5% in 0.45% NACL 1,000 ML IVC SCH (15:40)
[2022-03-19] MEDS: lisinopriL 5 MG TABLET PO SCH ×2 (15:40→20:30)
[2022-03-19] MEDS ORDERED: Scopolamine Patch 1.5 MG PATCH.TD72 TD SCH (18:15)
[2022-03-19] MEDS: Latanoprost 2.5 ML BOTTLE BOTH EYES SCH (18:44)
[2022-03-19] MEDS ORDERED: Ondansetron 4 MG/2 ML VIAL IVP SCH (19:26)
[2022-03-19] MEDS: Budesonide/Formoterol 160/4.5 1 PUFF INH IH SCH (19:56)
[2022-03-19] MEDS: Ondansetron 4 MG/2 ML VIAL IVP SCH (19:59)
[2022-03-19] MEDS ORDERED: *HR* LORazepam 2 MG/ML VIAL IVP ONE ×2 (20:26)
[2022-03-20] MEDS: D5% in 0.45% NACL 1,000 ML IVC SCH (00:40)
[2022-03-20 01:47] LABS: Hematocrit 46.6 % (37.5-50.1); Hemoglobin 15.4 g/dL (12.9-16.9); Mean Corpuscular Hemoglobin 30.8 pg (28.0-33.3); Mean Corpuscular Volume 93.2 fL (83.0-100.0); Mean Platelet Volume 10.4 fL (9.4-12.4); Platelet Count 297 K/mcL (140-400); Red Cell Distribution Width 12.6 % (11.5-14.5); White Blood Count 9.4 K/mcL (4.3-11.1)
[2022-03-20 01:59] LABS: BUN/Creatinine Ratio 7 (6-26); Blood Urea Nitrogen 8 mg/dL (8-23); Calcium 9.6 mg/dL (8.6-10.3); Carbon Dioxide 31 mEq/L (23-29); Chloride 102 mEq/L (98-107); Glucose 115 mg/dL (70-105); Osmolality,Calculated 293 (280-300); Potassium 3.2 mEq/L (3.5-5.1); Sodium 142 mEq/L (136-145); eGFR For African Americans > 60 (> 60); eGFR For Non-African Americans > 60 (> 60)
[2022-03-20] MEDS: Ondansetron 4 MG/2 ML VIAL IVP SCH ×2 (03:28→06:04)
[2022-03-20] MEDS ORDERED: *HR* Enoxaparin 40 MG/0.4 ML SYRINGE SQ SCH (06:00)
[2022-03-20] MEDS: MetroNIDAZOLE 500 MG/100 ML 500 MG/100 ML BAG IVPB SCH (06:03)
[2022-03-20] MEDS ORDERED: *HR* Propofol 200 MG/20 ML VIAL IVP ONE (07:44)
[2022-03-20] MEDS ORDERED: Lidocaine -MPF 2% 5 ML VIAL ONE (07:44)
[2022-03-20] MEDS ORDERED: *HR* Succinylcholine 200 MG/10 ML VIAL IVP ONE (07:44)
[2022-03-20] MEDS ORDERED: *HR* Rocuronium Bromide 50 MG/5 ML VIAL ONE ×2 (07:44→10:13)
[2022-03-20] MEDS ORDERED: *HR* FentaNYL (PF) 100 MCG/2 ML VIAL ONE (07:44)
[2022-03-20] MEDS ORDERED: *HR* Midazolam HCl 2 MG/2 ML VIAL ONE (07:44)
[2022-03-20] MEDS: Budesonide/Formoterol 160/4.5 1 PUFF INH IH SCH (07:46)
[2022-03-20] MEDS ORDERED: Albumin Human 5% 25.0 GM/500 ML IV.SOLN ONE (07:50)
[2022-03-20] MEDS ORDERED: *HR* Vasopressin 20 UNIT/ML VIAL ONE (07:50)
[2022-03-20] MEDS: lisinopriL 5 MG TABLET PO SCH (08:19)
[2022-03-20] MEDS ORDERED: Ondansetron 4 MG/2 ML VIAL ONE ×2 (08:39→10:05)
[2022-03-20] MEDS ORDERED: *HR* HYDROmorphone PF 0.5 MG/0.5 ML SYRINGE IVP PRN (09:40)
[2022-03-20] MEDS ORDERED: Ipratropium Neb 0.5 MG NEBULIZER IH PRN (09:40)
[2022-03-20] MEDS ORDERED: *HR* FentaNYL (PF) 100 MCG/2 ML VIAL IVP PRN (09:40)
[2022-03-20] MEDS ORDERED: Albuterol 2.5 MG/3 ML NEBULIZER IH PRN (09:40)
[2022-03-20] MEDS ORDERED: Naloxone 0.4 MG/ML INJ IVP PRN ×2 (09:40→12:19)
[2022-03-20] MEDS ORDERED: Nitroglycerin 0.4 MG TAB.SUBL SL PRN (09:40)
[2022-03-20] MEDS ORDERED: Ondansetron 4 MG/2 ML VIAL IVP PRN ×2 (09:40→12:19)
[2022-03-20] MEDS ORDERED: *HR* Metoprolol 5 MG/5 ML VIAL IVP PRN ×2 (09:41→12:19)
[2022-03-20] MEDS ORDERED: Ketamine HCL *QUVA* 50mg (1mL) SYRINGE ONE (10:04)
[2022-03-20] MEDS ORDERED: CefOXitin 2,000 MG VIAL ONE (10:37)
[2022-03-20] MEDS ORDERED: ROPIVACAINE/PF/NS 0.25% 1 EACH SYRINGE INTRAART ONE (10:56)
[2022-03-20] MEDS ORDERED: *HR* HYDROMORPHONE 2 MG/ML VIAL ONE (11:25)
[2022-03-20] MEDS ORDERED: Ipratropium/Albuterol Neb 3 ML ONE (11:57)
[2022-03-20] MEDS ORDERED: *HR* HYDROmorphone PCA *PREMADE* 20 MG/1MG/ML (20mL) PCA VIAL IVC PRN (12:19)
[2022-03-20] MEDS: *HR* HYDROmorphone PF 0.5 MG/0.5 ML SYRINGE IVP PRN ×2 (13:06→13:23)
[2022-03-20] MEDS: Heparin 25,000UNIT/250ML 1/2NS 25,000 UNIT/250 ML IV.SOLN IVC SCH ×2 (14:59→17:52)
[2022-03-20 15:17] LABS: Heparin anti-factor XA UFH < 0.04 IU/mL (0.30-0.70); INR 1.3
[2022-03-20 15:21] LABS: Hematocrit 44.5 % (37.5-50.1); Hemoglobin 14.8 g/dL (12.9-16.9); Mean Corpuscular HGB Conc 33.3 g/dL (31.6-35.5); Mean Corpuscular Hemoglobin 30.7 pg (28.0-33.3); Mean Corpuscular Volume 92.3 fL (83.0-100.0); Platelet Count 261 K/mcL (140-400); Red Blood Count 4.82 M/mcL (4.19-5.50); Red Cell Distribution Width 12.5 % (11.5-14.5); White Blood Count 12.8 K/mcL (4.3-11.1)
[2022-03-20] MEDS: 0.9 % Sodium Chloride 1,000 ML IVC SCH (15:55)
[2022-03-20] MEDS: D5% in 0.45% NACL w KCl 20 MEQ/1,000 ML MLS IVC SCH (17:01)
[2022-03-20] MEDS: Levothyroxine Sodium 100 MCG VIAL IVP SCH (17:05)
[2022-03-21 01:54] LABS: Basophils % 0.1 %; Hematocrit 45.8 % (37.5-50.1); Hemoglobin 15.1 g/dL (12.9-16.9); Immature Granulocytes % 0.5 % (0-4); Lymphocytes # 1.4 K/mcL (0.6-4.6); Lymphocytes % 10.2 %; Mean Corpuscular Hemoglobin 30.8 pg (28.0-33.3); Mean Corpuscular Volume 93.5 fL (83.0-100.0); Mean Platelet Volume 10.3 fL (9.4-12.4); Monocytes % 7.3 %; Platelet Count 276 K/mcL (140-400); Red Cell Distribution Width 12.5 % (11.5-14.5); Segmented Neutrophils % 81.9 %; White Blood Count 13.5 K/mcL (4.3-11.1)
[2022-03-21 02:16] LABS: BUN/Creatinine Ratio 9 (6-26); Blood Urea Nitrogen 9 mg/dL (8-23); Calcium 8.6 mg/dL (8.6-10.3); Carbon Dioxide 31 mEq/L (23-29); Chloride 101 mEq/L (98-107); Glucose 130 mg/dL (70-105); Magnesium 1.7 mg/dL (1.6-2.6); Osmolality,Calculated 288 (280-300); Phosphorous 3.1 mg/dL (2.7-4.5); Potassium 3.4 mEq/L (3.5-5.1); Sodium 139 mEq/L (136-145); eGFR For African Americans > 60 (> 60); eGFR For Non-African Americans > 60 (> 60)
[2022-03-21] MEDS: D5% in 0.45% NACL w KCl 20 MEQ/1,000 ML MLS IVC SCH ×4 (05:55→17:55)
[2022-03-21] MEDS ORDERED: *HR* Heparin 5,000 UNIT/ML VIAL IVP PRN ×2 (06:21)
[2022-03-21] MEDS: Levothyroxine Sodium 100 MCG VIAL IVP SCH (08:07)
[2022-03-21] MEDS: Acetaminophen IV 1,000 MG/100 ML BAG IVPB SCH ×3 (08:32→17:54)
[2022-03-21] MEDS ORDERED: Fluconazole 400 MG/200 ML 400 MG/200 ML BAG IVPB SCH (09:00)
[2022-03-21] MEDS: Piperacillin/Tazobactam 3.375 GM in 0.9 % Sodium Chloride Mini Bag 100 ML IVPB SCH ×2 (10:29→15:41)
[2022-03-21] MEDS: Pantoprazole 40 MG VIAL IVP SCH ×2 (10:43→17:54)
[2022-03-21] MEDS: Heparin 25,000UNIT/250ML 1/2NS 25,000 UNIT/250 ML IV.SOLN IVC SCH (12:55)
[2022-03-21] MEDS: 0.9 % Sodium Chloride 1,000 ML IVC SCH (15:41)
[2022-03-21] MEDS: Ipratropium/Albuterol Neb 3 ML IH PRN (21:30)
[2022-03-21] MEDS: Orphenadrine 60 MG/2 ML VIAL IVP PRN (23:22)
[2022-03-22] MEDS: Acetaminophen IV 1,000 MG/100 ML BAG IVPB SCH ×4 (01:30→17:38)
[2022-03-22] MEDS: Piperacillin/Tazobactam 3.375 GM in 0.9 % Sodium Chloride Mini Bag 100 ML IVPB SCH ×3 (01:32→17:36)
[2022-03-22] MEDS: D5% in 0.45% NACL w KCl 20 MEQ/1,000 ML MLS IVC SCH ×4 (02:39→17:38)
[2022-03-22 05:03] LABS: Basophils # 0.1 K/mcL (0.0-0.2); Basophils % 0.5 %; Eosinophils # 0.5 K/mcL (0.0-0.6); Eosinophils % 4.7 %; Hematocrit 43.8 % (37.5-50.1); Immature Granulocytes % 0.7 % (0-4); Lymphocytes # 1.6 K/mcL (0.6-4.6); Lymphocytes % 15.1 %; Mean Corpuscular Hemoglobin 30.6 pg (28.0-33.3); Mean Corpuscular Volume 95.8 fL (83.0-100.0); Mean Platelet Volume 10.7 fL (9.4-12.4); Monocytes # 0.9 K/mcL (0.0-1.3); Monocytes % 8.6 %; Neutrophils # 7.6 K/mcL (1.6-8.9); Platelet Count 190 K/mcL (140-400); Red Blood Count 4.57 M/mcL (4.19-5.50); Red Cell Distribution Width 12.7 % (11.5-14.5); Segmented Neutrophils % 70.4 %; White Blood Count 10.8 K/mcL (4.3-11.1)
[2022-03-22] MEDS: Heparin 25,000UNIT/250ML 1/2NS 25,000 UNIT/250 ML IV.SOLN IVC SCH ×2 (05:05→21:21)
[2022-03-22 05:22] LABS: BUN/Creatinine Ratio 8 (6-26); Blood Urea Nitrogen 9 mg/dL (8-23); Calcium 8.1 mg/dL (8.6-10.3); Carbon Dioxide 26 mEq/L (23-29); Chloride 102 mEq/L (98-107); Glucose 106 mg/dL (70-105); Magnesium 1.7 mg/dL (1.6-2.6); Osmolality,Calculated 281 (280-300); Phosphorous 2.2 mg/dL (2.7-4.5); Potassium 3.7 mEq/L (3.5-5.1); Sodium 136 mEq/L (136-145); eGFR For African Americans > 60 (> 60); eGFR For Non-African Americans > 60 (> 60)
[2022-03-22] MEDS: Pantoprazole 40 MG VIAL IVP SCH ×2 (06:40→17:37)
[2022-03-22] MEDS ORDERED: Ondansetron 4 MG/2 ML VIAL IVP PRN (09:21)
[2022-03-22] MEDS: Fluconazole 200 MG/100 ML 200 MG/100 ML BAG IVPB SCH (10:19)
[2022-03-22] MEDS: Levothyroxine Sodium 100 MCG VIAL IVP SCH ×2 (10:20→23:38)
[2022-03-22] MEDS: 0.9 % Sodium Chloride 1,000 ML IVC SCH (16:02)
[2022-03-22] MEDS: D5% in 0.45% NACL 1,000 ML IVC SCH (23:38)
[2022-03-22] MEDS: Ondansetron 4 MG/2 ML VIAL IVP SCH (23:39)
[2022-03-23] MEDS: Acetaminophen IV 1,000 MG/100 ML BAG IVPB SCH ×5 (00:42→23:50)
[2022-03-23] MEDS: D5% in 0.45% NACL w KCl 20 MEQ/1,000 ML MLS IVC SCH ×2 (01:34→08:45)
[2022-03-23] MEDS: Ipratropium/Albuterol Neb 3 ML IH PRN (01:57)
[2022-03-23] MEDS: Pantoprazole 40 MG VIAL IVP SCH ×2 (04:46→18:22)
[2022-03-23] MEDS: Piperacillin/Tazobactam 3.375 GM in 0.9 % Sodium Chloride Mini Bag 100 ML IVPB SCH ×3 (04:46→21:10)
[2022-03-23 05:37] LABS: Basophils % 0.3 %; Eosinophils # 0.5 K/mcL (0.0-0.6); Eosinophils % 4.2 %; Hematocrit 44.8 % (37.5-50.1); Hemoglobin 14.6 g/dL (12.9-16.9); Immature Granulocytes % 0.8 % (0-4); Lymphocytes # 1.3 K/mcL (0.6-4.6); Lymphocytes % 12.6 %; Mean Corpuscular HGB Conc 32.6 g/dL (31.6-35.5); Mean Corpuscular Hemoglobin 30.5 pg (28.0-33.3); Mean Corpuscular Volume 93.7 fL (83.0-100.0); Mean Platelet Volume 10.8 fL (9.4-12.4); Monocytes # 0.7 K/mcL (0.0-1.3); Monocytes % 6.5 %; Platelet Count 245 K/mcL (140-400); Red Blood Count 4.78 M/mcL (4.19-5.50); Red Cell Distribution Width 12.4 % (11.5-14.5); Segmented Neutrophils % 75.6 %; White Blood Count 10.6 K/mcL (4.3-11.1)
[2022-03-23 05:46] LABS: BUN/Creatinine Ratio 5 (6-26); Blood Urea Nitrogen 5 mg/dL (8-23); Calcium 8.5 mg/dL (8.6-10.3); Carbon Dioxide 29 mEq/L (23-29); Chloride 102 mEq/L (98-107); Glucose 126 mg/dL (70-105); Magnesium 1.7 mg/dL (1.6-2.6); Osmolality,Calculated 285 (280-300); Phosphorous 1.7 mg/dL (2.7-4.5); Potassium 3.5 mEq/L (3.5-5.1); Sodium 138 mEq/L (136-145); eGFR For African Americans > 60 (> 60); eGFR For Non-African Americans > 60 (> 60)
[2022-03-23] MEDS ORDERED: Calcium Gluconate 1gm/50mL 1 GM/50 ML BAG IVPB ONE (06:50)
[2022-03-23] MEDS: Levothyroxine Sodium 100 MCG VIAL IVP SCH (08:44)
[2022-03-23] MEDS: Budesonide/Formoterol 160/4.5 1 PUFF INH IH SCH ×2 (10:33→20:16)
[2022-03-23] MEDS: Fluconazole 200 MG/100 ML 200 MG/100 ML BAG IVPB SCH (11:52)
[2022-03-23] MEDS: Oxymetazoline Nasal SPRAY BOTTLE 15ML NS SCH ×2 (12:04→18:22)
[2022-03-23] MEDS: Loratadine 10 MG TABLET PO SCH (12:04)
[2022-03-23] MEDS ORDERED: Furosemide 40 MG/4 ML VIAL IVP ONE (13:44)
[2022-03-23] MEDS ORDERED: *HR* Rivaroxaban 10 MG TABLET PO SCH (17:00)
[2022-03-23] MEDS ORDERED: calcium polycarbophiL 625 MG TABLET PO SCH (21:00)
[2022-03-23] MEDS: Orphenadrine 60 MG/2 ML VIAL IVP PRN (22:02)
[2022-03-24] MEDS ORDERED: *HR* LORazepam 2 MG/ML VIAL IVP ONE ×2 (05:35→20:30)
[2022-03-24] MEDS: Pantoprazole 40 MG VIAL IVP SCH ×2 (06:19→17:43)
[2022-03-24] MEDS: Piperacillin/Tazobactam 3.375 GM in 0.9 % Sodium Chloride Mini Bag 100 ML IVPB SCH ×3 (06:19→20:27)
[2022-03-24] MEDS: Acetaminophen IV 1,000 MG/100 ML BAG IVPB SCH ×3 (06:20→17:43)
[2022-03-24] MEDS: Oxymetazoline Nasal SPRAY BOTTLE 15ML NS SCH ×2 (06:20→17:44)
[2022-03-24 06:41] LABS: Basophils # 0.1 K/mcL (0.0-0.2); Basophils % 0.6 %; Eosinophils # 0.3 K/mcL (0.0-0.6); Eosinophils % 3.5 %; Hematocrit 45.1 % (37.5-50.1); Hemoglobin 14.9 g/dL (12.9-16.9); Immature Granulocytes % 0.9 % (0-4); Lymphocytes # 1.5 K/mcL (0.6-4.6); Lymphocytes % 17.4 %; Mean Corpuscular Hemoglobin 30.6 pg (28.0-33.3); Mean Corpuscular Volume 92.6 fL (83.0-100.0); Mean Platelet Volume 10.5 fL (9.4-12.4); Monocytes # 0.7 K/mcL (0.0-1.3); Monocytes % 8.2 %; Neutrophils # 5.9 K/mcL (1.6-8.9); Platelet Count 261 K/mcL (140-400); Red Blood Count 4.87 M/mcL (4.19-5.50); Red Cell Distribution Width 12.8 % (11.5-14.5); Segmented Neutrophils % 69.4 %; White Blood Count 8.6 K/mcL (4.3-11.1)
[2022-03-24 06:59] LABS: BUN/Creatinine Ratio 6 (6-26); Blood Urea Nitrogen 7 mg/dL (8-23); Carbon Dioxide 28 mEq/L (23-29); Chloride 100 mEq/L (98-107); Glucose 110 mg/dL (70-105); Magnesium 1.9 mg/dL (1.6-2.6); Osmolality,Calculated 285 (280-300); Potassium 3.4 mEq/L (3.5-5.1); Sodium 138 mEq/L (136-145); eGFR For African Americans > 60 (> 60); eGFR For Non-African Americans > 60 (> 60)
[2022-03-24] MEDS: Budesonide/Formoterol 160/4.5 1 PUFF INH IH SCH ×2 (08:04→20:23)
[2022-03-24] MEDS: Loratadine 10 MG TABLET PO SCH (09:43)
[2022-03-24] MEDS: Fluconazole 200 MG/100 ML 200 MG/100 ML BAG IVPB SCH (10:08)
[2022-03-24] MEDS: 0.9 % Sodium Chloride 1,000 ML IVC SCH (14:51)
[2022-03-24] MEDS: Latanoprost 2.5 ML BOTTLE BOTH EYES SCH (20:27)
[2022-03-24] MEDS: Orphenadrine 60 MG/2 ML VIAL IVP PRN (22:38)
[2022-03-25] MEDS: Acetaminophen IV 1,000 MG/100 ML BAG IVPB SCH ×5 (00:22→23:23)
[2022-03-25] MEDS: 0.9 % Sodium Chloride 1,000 ML IVC SCH (00:22)
[2022-03-25] MEDS: Pantoprazole 40 MG VIAL IVP SCH ×2 (05:17→17:34)
[2022-03-25] MEDS: Piperacillin/Tazobactam 3.375 GM in 0.9 % Sodium Chloride Mini Bag 100 ML IVPB SCH ×3 (05:17→22:29)
[2022-03-25] MEDS: Oxymetazoline Nasal SPRAY BOTTLE 15ML NS SCH ×2 (05:33→17:34)
[2022-03-25 05:42] LABS: Basophils # 0.1 K/mcL (0.0-0.2); Basophils % 0.8 %; Eosinophils # 0.7 K/mcL (0.0-0.6); Eosinophils % 7.5 %; Hematocrit 43.1 % (37.5-50.1); Hemoglobin 14.3 g/dL (12.9-16.9); Immature Granulocytes % 0.9 % (0-4); Lymphocytes % 23.5 %; Mean Corpuscular HGB Conc 33.2 g/dL (31.6-35.5); Mean Corpuscular Hemoglobin 31.1 pg (28.0-33.3); Mean Corpuscular Volume 93.7 fL (83.0-100.0); Mean Platelet Volume 10.4 fL (9.4-12.4); Monocytes # 0.7 K/mcL (0.0-1.3); Neutrophils # 5.1 K/mcL (1.6-8.9); Platelet Count 278 K/mcL (140-400); Red Cell Distribution Width 12.9 % (11.5-14.5); Segmented Neutrophils % 59.3 %; White Blood Count 8.6 K/mcL (4.3-11.1)
[2022-03-25 06:03] LABS: BUN/Creatinine Ratio 10 (6-26); Blood Urea Nitrogen 13 mg/dL (8-23); Calcium 8.7 mg/dL (8.6-10.3); Carbon Dioxide 26 mEq/L (23-29); Chloride 103 mEq/L (98-107); Glucose 85 mg/dL (70-105); Osmolality,Calculated 287 (280-300); Potassium 3.3 mEq/L (3.5-5.1); Sodium 139 mEq/L (136-145); eGFR For African Americans > 60 (> 60); eGFR For Non-African Americans 58 (> 60)
[2022-03-25] MEDS: Budesonide/Formoterol 160/4.5 1 PUFF INH IH SCH ×2 (07:47→20:23)
[2022-03-25] MEDS: Loratadine 10 MG TABLET PO SCH (09:04)
[2022-03-25] MEDS: Fluconazole 200 MG/100 ML 200 MG/100 ML BAG IVPB SCH (09:04)
[2022-03-25] MEDS ORDERED: Potassium Chloride Elixir 20 MEQ/15 ML UDC PO ONE (12:45)
[2022-03-25] MEDS ORDERED: *HR* LORazepam 2 MG/ML VIAL IVP ONE (22:13)
[2022-03-25] MEDS: Latanoprost 2.5 ML BOTTLE BOTH EYES SCH (22:14)
[2022-03-26] MEDS: Orphenadrine 60 MG/2 ML VIAL IVP PRN (04:00)
[2022-03-26 04:17] LABS: Hematocrit 45.5 % (37.5-50.1); Mean Corpuscular Hemoglobin 30.5 pg (28.0-33.3); Mean Corpuscular Volume 92.5 fL (83.0-100.0); Mean Platelet Volume 9.8 fL (9.4-12.4); Platelet Count 329 K/mcL (140-400); Red Blood Count 4.92 M/mcL (4.19-5.50); Red Cell Distribution Width 12.8 % (11.5-14.5); White Blood Count 9.7 K/mcL (4.3-11.1)
[2022-03-26 04:58] LABS: BUN/Creatinine Ratio 10 (6-26); Blood Urea Nitrogen 12 mg/dL (8-23); Calcium 8.8 mg/dL (8.6-10.3); Carbon Dioxide 26 mEq/L (23-29); Chloride 103 mEq/L (98-107); Glucose 106 mg/dL (70-105); Osmolality,Calculated 288 (280-300); Potassium 3.4 mEq/L (3.5-5.1); Sodium 139 mEq/L (136-145); eGFR For African Americans > 60 (> 60); eGFR For Non-African Americans 59 (> 60)
[2022-03-26] MEDS: Piperacillin/Tazobactam 3.375 GM in 0.9 % Sodium Chloride Mini Bag 100 ML IVPB SCH ×3 (05:15→22:13)
[2022-03-26] MEDS: Pantoprazole 40 MG VIAL IVP SCH ×2 (05:15→17:07)
[2022-03-26] MEDS: Acetaminophen IV 1,000 MG/100 ML BAG IVPB SCH ×4 (05:49→23:32)
[2022-03-26] MEDS: Loratadine 10 MG TABLET PO SCH (09:05)
[2022-03-26] MEDS: Fluconazole 200 MG/100 ML 200 MG/100 ML BAG IVPB SCH (09:05)
[2022-03-26] MEDS: Budesonide/Formoterol 160/4.5 1 PUFF INH IH SCH ×2 (10:46→19:56)
[2022-03-26] MEDS: 0.9 % Sodium Chloride 1,000 ML IVC SCH ×2 (11:06→22:12)
[2022-03-26] MEDS ORDERED: Metoclopramide 10 MG/2 ML VIAL IVP SCH (18:56)
[2022-03-26] MEDS: Latanoprost 2.5 ML BOTTLE BOTH EYES SCH (22:13)
[2022-03-26] MEDS ORDERED: *HR* LORazepam 2 MG/ML VIAL IVP ONE (22:54)
[2022-03-27] MEDS: Acetaminophen IV 1,000 MG/100 ML BAG IVPB SCH ×3 (04:16→18:41)
[2022-03-27] MEDS: Pantoprazole 40 MG VIAL IVP SCH ×2 (04:17→17:23)
[2022-03-27] MEDS: Metoclopramide 10 MG/2 ML VIAL IVP SCH ×4 (04:17→22:54)
[2022-03-27] MEDS: Piperacillin/Tazobactam 3.375 GM in 0.9 % Sodium Chloride Mini Bag 100 ML IVPB SCH ×3 (04:18→22:53)
[2022-03-27 04:35] LABS: Hematocrit 42.3 % (37.5-50.1); Hemoglobin 13.9 g/dL (12.9-16.9); Mean Corpuscular HGB Conc 32.9 g/dL (31.6-35.5); Mean Corpuscular Volume 94.4 fL (83.0-100.0); Mean Platelet Volume 10.1 fL (9.4-12.4); Platelet Count 285 K/mcL (140-400); Red Blood Count 4.48 M/mcL (4.19-5.50); White Blood Count 7.8 K/mcL (4.3-11.1)
[2022-03-27 04:53] LABS: BUN/Creatinine Ratio 10 (6-26); Blood Urea Nitrogen 12 mg/dL (8-23); Calcium 8.5 mg/dL (8.6-10.3); Carbon Dioxide 26 mEq/L (23-29); Chloride 107 mEq/L (98-107); Glucose 82 mg/dL (70-105); Osmolality,Calculated 291 (280-300); Phosphorous 3.2 mg/dL (2.7-4.5); Potassium 3.6 mEq/L (3.5-5.1); Sodium 141 mEq/L (136-145); eGFR For African Americans > 60 (> 60); eGFR For Non-African Americans > 60 (> 60)
[2022-03-27] MEDS: Budesonide/Formoterol 160/4.5 1 PUFF INH IH SCH ×2 (07:42→20:16)
[2022-03-27] MEDS: Loratadine 10 MG TABLET PO SCH (08:52)
[2022-03-27] MEDS: Fluconazole 200 MG/100 ML 200 MG/100 ML BAG IVPB SCH (08:58)
[2022-03-27] MEDS: Orphenadrine 60 MG/2 ML VIAL IVP PRN (22:53)
[2022-03-27] MEDS: Latanoprost 2.5 ML BOTTLE BOTH EYES SCH (22:58)
[2022-03-28] MEDS: Acetaminophen IV 1,000 MG/100 ML BAG IVPB SCH ×2 (01:28→06:16)
[2022-03-28] MEDS: Pantoprazole 40 MG VIAL IVP SCH (06:21)
[2022-03-28] MEDS: Piperacillin/Tazobactam 3.375 GM in 0.9 % Sodium Chloride Mini Bag 100 ML IVPB SCH ×3 (06:21→22:18)
[2022-03-28] MEDS: Metoclopramide 10 MG/2 ML VIAL IVP SCH (06:21)
[2022-03-28 06:22] LABS: Hematocrit 42.6 % (37.5-50.1); Hemoglobin 13.8 g/dL (12.9-16.9); Mean Corpuscular HGB Conc 32.4 g/dL (31.6-35.5); Mean Corpuscular Hemoglobin 30.4 pg (28.0-33.3); Mean Corpuscular Volume 93.8 fL (83.0-100.0); Platelet Count 318 K/mcL (140-400); Red Blood Count 4.54 M/mcL (4.19-5.50); Red Cell Distribution Width 12.8 % (11.5-14.5); White Blood Count 6.8 K/mcL (4.3-11.1)
[2022-03-28 06:39] LABS: BUN/Creatinine Ratio 9 (6-26); Blood Urea Nitrogen 10 mg/dL (8-23); Calcium 8.5 mg/dL (8.6-10.3); Carbon Dioxide 24 mEq/L (23-29); Chloride 107 mEq/L (98-107); Glucose 90 mg/dL (70-105); Osmolality,Calculated 285 (280-300); Potassium 3.3 mEq/L (3.5-5.1); Sodium 138 mEq/L (136-145); eGFR For African Americans > 60 (> 60); eGFR For Non-African Americans > 60 (> 60)
[2022-03-28] MEDS: Budesonide/Formoterol 160/4.5 1 PUFF INH IH SCH ×2 (07:48→22:49)
[2022-03-28] MEDS ORDERED: *HR* OxyCODONE Immed Rel 5 MG TABLET PO PRN (08:19)
[2022-03-28] MEDS ORDERED: methocarbamoL 750 MG TABLET PO PRN (08:20)
[2022-03-28] MEDS: Loratadine 10 MG TABLET PO SCH (09:58)
[2022-03-28] MEDS: Fluconazole 400 MG/200 ML 400 MG/200 ML BAG IVPB SCH (09:59)
[2022-03-28] MEDS: Latanoprost 2.5 ML BOTTLE BOTH EYES SCH (12:29)
[2022-03-28] MEDS: Acetaminophen 325 MG TABLET PO SCH ×2 (12:33→17:13)
[2022-03-28] MEDS: *HR* Rivaroxaban 10 MG TABLET PO SCH (17:39)
[2022-03-29] MEDS: Acetaminophen 325 MG TABLET PO SCH ×3 (00:31→16:19)
[2022-03-29] MEDS: Piperacillin/Tazobactam 3.375 GM in 0.9 % Sodium Chloride Mini Bag 100 ML IVPB SCH ×3 (05:38→20:39)
[2022-03-29] MEDS: Budesonide/Formoterol 160/4.5 1 PUFF INH IH SCH ×2 (07:39→20:01)
[2022-03-29] MEDS ORDERED: Methylnaltrexone 12 MG/0.6 ML SYRINGE SQ ONE (08:46)
[2022-03-29 08:49] LABS: Hematocrit 44.9 % (37.5-50.1); Mean Corpuscular HGB Conc 33.4 g/dL (31.6-35.5); Mean Corpuscular Volume 92.8 fL (83.0-100.0); Mean Platelet Volume 10.1 fL (9.4-12.4); Platelet Count 369 K/mcL (140-400); Red Blood Count 4.84 M/mcL (4.19-5.50); Red Cell Distribution Width 12.7 % (11.5-14.5)
[2022-03-29 08:50] LABS: White Blood Count 10.9 K/mcL (4.3-11.1)
[2022-03-29 09:09] LABS: BUN/Creatinine Ratio 7 (6-26); Blood Urea Nitrogen 8 mg/dL (8-23); Calcium 8.9 mg/dL (8.6-10.3); Carbon Dioxide 23 mEq/L (23-29); Chloride 105 mEq/L (98-107); Glucose 110 mg/dL (70-105); Magnesium 1.9 mg/dL (1.6-2.6); Osmolality,Calculated 281 (280-300); Phosphorous 2.3 mg/dL (2.7-4.5); Potassium 3.7 mEq/L (3.5-5.1); Sodium 136 mEq/L (136-145); eGFR For African Americans > 60 (> 60); eGFR For Non-African Americans > 60 (> 60)
[2022-03-29] MEDS: Loratadine 10 MG TABLET PO SCH (09:24)
[2022-03-29] MEDS: Fluconazole 400 MG/200 ML 400 MG/200 ML BAG IVPB SCH (09:24)
[2022-03-29] MEDS ORDERED: Acetaminophen 325 MG TABLET PO PRN (13:00)
[2022-03-29] MEDS: lisinopriL 10 MG TABLET PO SCH (15:03)
[2022-03-29] MEDS: *HR* Rivaroxaban 10 MG TABLET PO SCH (17:51)
[2022-03-29] MEDS: Latanoprost 2.5 ML BOTTLE BOTH EYES SCH (20:39)
[2022-03-30] MEDS: Piperacillin/Tazobactam 3.375 GM in 0.9 % Sodium Chloride Mini Bag 100 ML IVPB SCH ×3 (05:37→22:09)
[2022-03-30] MEDS: Budesonide/Formoterol 160/4.5 1 PUFF INH IH SCH ×2 (08:01→19:57)
[2022-03-30] MEDS: Fluconazole 400 MG/200 ML 400 MG/200 ML BAG IVPB SCH (08:17)
[2022-03-30] MEDS: lisinopriL 10 MG TABLET PO SCH (08:17)
[2022-03-30] MEDS: Loratadine 10 MG TABLET PO SCH (08:17)
[2022-03-30] MEDS: Latanoprost 2.5 ML BOTTLE BOTH EYES SCH (08:18)
[2022-03-30] MEDS: *HR* Rivaroxaban 10 MG TABLET PO SCH (16:45)
[2022-03-31] MEDS: Piperacillin/Tazobactam 3.375 GM in 0.9 % Sodium Chloride Mini Bag 100 ML IVPB SCH (05:34)
[2022-03-31 07:32] VITALS: BP 160/78; PULSE 60; TEMP 97.8; O2SAT 95
[2022-03-31] MEDS: Budesonide/Formoterol 160/4.5 1 PUFF INH IH SCH (08:04)
[2022-03-31] MEDS: lisinopriL 10 MG TABLET PO SCH (08:32)
[2022-03-31] MEDS: Loratadine 10 MG TABLET PO SCH (08:32)
[2022-03-31] MEDS: Fluconazole 400 MG/200 ML 400 MG/200 ML BAG IVPB SCH (08:33)
[2022-03-31] MEDS: Latanoprost 2.5 ML BOTTLE BOTH EYES SCH (08:33)
== END 2022-03-31 10:28 | disposition home or self-care (01) | DRG 329 ==
LOC: EMEROOARM 14:41 → 3ANU 14:41 → SUATTDRO 20:04 → 3ANU 20:35 → SUATTDRO 03-19 19:43
PROVIDERS: ADMIT General Practice; ATTEND Family Medicine